=== PATIENT | male | born 1985 | race Caucasian/White ===

== ENCOUNTER → 2018-06-24 | Outpatient (CLI) | payer BC ==
[~2018-06-24] MED LIST: ACHD5005 PO; HOLD METFORMIN - RECEIVED CONTRAST 20 ML VIAL IV SCH; HYDR-1231 PO; HYDR1TAB PO; IOHEXOL 350 MG/ML 100 ML (OMNIPAQUE 350) VIAL IV ONE; NAPR-684 PO; SULF1TAB38 PO
--- NOTE | 2018-06-24 18:10 | Diagnostic Imaging Report ---
PROCEDURE: CT abdomen and pelvis with contrast. TECHNIQUE: Multiple contiguous axial images were obtained through the abdomen and pelvis after administration of intravenous contrast. Auto Exposure Controls were utilized during the CT exam to meet ALARA standards for radiation dose reduction. INDICATION: Right ureteral obstruction. Pain. FINDINGS: The liver is normal. The gallbladder is contracted. The bile ducts are not dilated. The spleen, pancreas, and adrenals are normal. The kidneys, ureters, and bladder are normal. The appendix is normal. No acute bowel abnormality is seen. There is no free intraperitoneal air or fluid. There is no bony abnormality. IMPRESSION: No abnormality is seen. Dictated by: Dictated on workstation # [id number]
== END ==
LOC: RAD 16:55
PROVIDERS: ATTEND Urology
DX: N13.5 Crossing vessel and stricture of ureter without hydronephrosis (principal)
CPT/HCPCS: 74177

== ENCOUNTER 2018-11-27 17:17 | Emergency (ER) | payer BC ==
[~2018-11-27] VITALS: Ht 175.3 cm; Wt 83.9 kg
[~2018-11-27 17:17] MED LIST changes: -HOLD METFORMIN - RECEIVED CONTRAST 20 ML VIAL IV SCH; -IOHEXOL 350 MG/ML 100 ML (OMNIPAQUE 350) VIAL IV ONE
[2018-11-27] MEDS ORDERED: RX-CLINDAMYCIN 150 MG (CLEOCIN) CAP PPK#4 PO STA (17:55)
[2018-11-27] MEDS ORDERED: RX-HYDROCODONE/APAP 5/325 MG #4 TAB PK PO PRN (18:00)
[2018-11-27] MEDS ORDERED: CLIN300C11 PO (18:07)
--- NOTE | 2018-11-27 18:07 | ED EENT ---
History of Present Illness General Chief Complaint: Dental Problems/Pain Stated Complaint: DENTAL PAIN Nursing Triage Note: PT VERBALIZED DENTAL PAIN FOR 1 WK Source: patient Exam Limitations: no limitations History of Present Illness Date Seen by Provider: Nov 27, 2018 Time Seen by Provider: 18:04 Initial Comments R with right lower dental pain and swelling for one week. Timing/Duration: abrupt Location: dental Prearrival Treatment: no prearrival treatment Associated Symptoms: denies symptoms Allergies and Home Medications Allergies Coded Allergies: morphine (Unverified Allergy, Mild, swollen arm and lizzette, 10/18/09) Home Medications Hydrocodone Bit/Acetaminophen 1 Tab Tablet, 1 TAB PO Q6H PRN for PAIN Prescribed by: NATHAN CRAWLEY on 10/11/131839 Naproxen 250 Mg Tablet, 1 EA PO TID PRN for PAIN FOR PAIN Prescribed by: NATHAN CRAWLEY on 10/11/131839 Patient Home Medication List Home Medication List Reviewed: Yes Review of Systems Review of Systems Constitutional: see HPI Eyes: No Symptoms Reported Ears: No Symptoms Reported Nose: no symptoms reported Mouth: see HPI Throat: no symptoms reported Respiratory: no symptoms reported Cardiovascular: no symptoms reported Musculoskeletal: no symptoms reported Past Nsjbkjf-Vcgxbm-Zucyyi Hx Patient Social History Recent Foreign Travel: No Contact w/Someone Who Travel: No Recent Infectious Disease Expo: No Immunizations Up To Date Tetanus Booster (TDap): Less than 5yrs Past Medical History Reproductive Disorders: No Sexually Transmitted Disease: No Family Medical History No Pertinent Family Hx Physical Exam Vital Signs Vital Signs - First Documented 11/27/18 17:36 Temp 98.2 Pulse 69 Resp 18 B/P (MAP) 127/82 (97) Pulse Ox 99 O2 Delivery Room Air Height, Weight, BMI Height: 5'9.00" Weight: 185lbs. oz. 83.608983bb; BMI Method:Stated General Appearance: WD/WN, no apparent distress Eyes: bilateral eye normal inspection, bilateral eye PERRL, bilateral eye EOMI Ears: bilateral ear auricle normal, bilateral ear canal normal, bilateral ear TM normal Mouth/Throat: other (multiple carious and fractured teeth. The right lower mandible is swollen but no fluctuance to suggest a drainable abscess) Neck: non-tender, full range of motion; No lymphadenopathy (R), No lymphadenopathy (L) Respiratory: no respiratory distress, no accessory muscle use Neurologic/Psychiatric: alert, normal mood/affect, oriented x 3 Skin: normal color, warm/dry Progress/Results/Core Measures Results/Orders My Orders Orders - NATHAN CRAWLEY APRN Rx-Clindamycin Capsule (Rx-Cleocin Capsu (11/27/18 17:55) Rx-Hydrocodone/Apap 5-325 Mg (Rx-Vicodin (11/27/18 18:00) Vital Signs/I&O 11/27/18 17:36 Temp 98.2 Pulse 69 Resp 18 B/P (MAP) 127/82 (97) Pulse Ox 99 O2 Delivery Room Air Blood Pressure Mean: 97 Departure Impression Primary Impression: Dental infection Disposition: HOME, SELF-CARE Condition: Improved Departure-Patient Inst. Decision time for Depature: 18:06 Referrals: KALIE RODNEY (Family) Primary Care Physician [facility] (PCP) Primary Care Physician Patient Instructions: Dental Pain Add. Discharge Instructions: 1. Call [facility] on Wednesday to make an appointment to be seen. Take antibiotics as directed. Return to ER for any concerns. This may take about 48 hours to notice improvement. All discharge instructions reviewed with patient and/or family. Voiced understanding. Scripts Clindamycin HCl (Clindamycin HCl) 300 Mg Capsule 300 MG PO TID, #21 CAP Prov: NATHAN CRAWLEY APRN 11/27/18 Images Mouth/Nose 1 - NATHAN CRAWLEY APRN Nov 27, 2018 18:07
[2018-11-27 18:22] VITALS: BP 127/82
== END 2018-11-27 18:35 | disposition home or self-care (01) ==
LOC: EDUNIT# 17:17 → ER 17:17
DX: K04.7 Periapical abscess without sinus (principal); Z88.5 Allergy status to narcotic agent
CPT/HCPCS: 99282

== ENCOUNTER 2018-12-03 16:16 | Emergency (ER) | payer BC ==
[~2018-12-03] VITALS: Ht 175.3 cm; Wt 83.9 kg
[~2018-12-03 16:16] MED LIST changes: +CLIN300C11 PO
[2018-12-03] MEDS ORDERED: CLIN300C11 PO (16:33)
--- NOTE | 2018-12-03 16:33 | ED EENT ---
History of Present Illness General Stated Complaint: DENTAL PAIN Source: patient Exam Limitations: no limitations History of Present Illness Date Seen by Provider: Dec 03, 2018 Time Seen by Provider: 16:30 Initial Comments Was seen here about a week ago for dental pain. Was given prescription for clindamycin 300 mg 3 times a day. There was right mandibular swelling. He took these for about 2 days, then accidentally washed his antibiotics in the washer. He's been without them for about 3 days. No pain today that has persisted swelling, needs a refill of antibiotics. Has appointment on 01/04/19 to tooth removed. Timing/Duration: abrupt Severity: moderate Location: dental Associated Symptoms: denies symptoms Allergies and Home Medications Allergies Coded Allergies: morphine (Unverified Allergy, Mild, swollen arm and lizzette, 10/18/09) Home Medications Clindamycin HCl 300 Mg Capsule, 300 MG PO TID Prescribed by: NATHAN CRAWLEY on 11/27/18 1807 Clindamycin HCl 300 Mg Capsule, 300 MG PO TID Prescribed by: NATHAN CRALWEY on 12/03/18 1633 Hydrocodone Bit/Acetaminophen 1 Tab Tablet, 1 TAB PO Q6H PRN for PAIN Prescribed by: NATHAN CRAWLEY on 10/11/13 1840 Naproxen 250 Mg Tablet, 1 EA PO TID PRN for PAIN FOR PAIN Prescribed by: NATHAN CRAWLEY on 10/11/13 1840 Patient Home Medication List Home Medication List Reviewed: Yes Review of Systems Review of Systems Constitutional: see HPI; No chills, No fever Eyes: No Symptoms Reported Ears: No Symptoms Reported Nose: no symptoms reported Mouth: no symptoms reported Throat: no symptoms reported Cardiovascular: no symptoms reported Musculoskeletal: no symptoms reported Skin: no symptoms reported Neurological: No Symptoms Reported Hematologic/Lymphatic: No Symptoms Reported Past Pjqnvya-Oyvpci-Ovwvab Hx Immunizations Up To Date Tetanus Booster (TDap): Less than 5yrs Past Medical History Reproductive Disorders: No Sexually Transmitted Disease: No Family Medical History No Pertinent Family Hx Physical Exam Vital Signs Vital Signs - First Documented 12/03/18 16:31 Temp 98.5 Pulse 84 Resp 18 B/P (MAP) 102/69 (80) Pulse Ox 100 Height, Weight, BMI Height: 5'9.00" Weight: 185lbs. oz. 83.939669gy; BMI Method:Stated General Appearance: WD/WN, no apparent distress Eyes: bilateral eye normal inspection, bilateral eye PERRL, bilateral eye EOMI Ears: bilateral ear auricle normal, bilateral ear canal normal, bilateral ear TM normal Nose: normal inspection Mouth/Throat: mandibular swelling (on the right side. On the buccal surface there is an area of fluctuance, he would like to have this drained.) Neck: No lymphadenopathy (R), No lymphadenopathy (L); other (No submandibular induration or cellulitis) Respiratory: normal breath sounds, no respiratory distress, no accessory muscle use Gastrointestinal: normal bowel sounds, non tender Neurologic/Psychiatric: alert, normal mood/affect, oriented x 3 Procedures/Interventions I&D : Progress Inferior alveolar nerve block done using 2 mL of 0.5% bupivacaine with epinephrine and 1% lidocaine with epinephrine 50-50 mixture. Area of maximum fluctuance was then incised with an 11 blade scalpel. A small amount of purulent material was expressed. Progress/Results/Core Measures Results/Orders My Orders Orders - NATHAN CRAWLEY APRN Lidocaine/Epi 2% 1:100,000 (Xylocaine/Ep (12/03/18 16:45) Vital Signs/I&O 12/03/18 16:31 Temp 98.5 Pulse 84 Resp 18 B/P (MAP) 102/69 (80) Pulse Ox 100 Departure Impression Primary Impression: Dental infection Disposition: 01 HOME, SELF-CARE Condition: Stable Departure-Patient Inst. Decision time for Depature: 16:33 Referrals: [facility] (PCP) Primary Care Physician KALIE RODNEY (Family) Primary Care Physician Patient Instructions: Dental Pain (DC) Scripts Clindamycin HCl (Clindamycin HCl) 300 Mg Capsule 300 MG PO TID, #21 CAP Prov: NATHAN CRAWLEY APRN 12/03/18 NATHAN CRAWLEY APRN Dec 03, 2018 16:33
[2018-12-03] MEDS ORDERED: LIDOCAINE/EPI 2% 1:100,00 (XYLOCAINE) 20 ML VIAL INJ ONE (16:45)
[2018-12-03 17:27] VITALS: BP 102/69
[2018-12-03] MEDS ORDERED: RX-HYDROCODONE/APAP 5/325 MG #4 TAB PK PO PRN (17:30)
== END 2018-12-03 17:27 | disposition home or self-care (01) ==
LOC: EDUNIT# 16:16 → ER 16:18
DX: K04.7 Periapical abscess without sinus (principal); Z88.5 Allergy status to narcotic agent
CPT/HCPCS: 99283

== ENCOUNTER 2019-09-15 09:43 | Emergency (ER) | payer BC ==
[~2019-09-15] VITALS: Ht 177.8 cm; Wt 77.1 kg
[2019-09-15] MEDS ORDERED: FAMOTIDINE 20 MG (PEPCID) TABLET PO STA (10:01)
[2019-09-15] MEDS ORDERED: FAMOTIDINE 20 MG (PEPCID) TABLET ONE (10:03)
[2019-09-15 10:09] LABS: BASOPHILS % (AUTO) 0 % (0-10); EOSINOPHILS # (AUTO) 0.1 10^3/uL (0.0-0.3); EOSINOPHILS % (AUTO) 1 % (0-10); HEMATOCRIT 47 % (40-54); HEMOGLOBIN 16.9 G/DL (13.3-17.7); LYMPHOCYTES # (AUTO) 2.7 X 10^3 (1.0-4.0); LYMPHOCYTES % (AUTO) 35 % (12-44); MEAN CORPUSCULAR HEMOGLOBIN 32 PG (25-34); MEAN CORPUSCULAR HGB CONC 36 G/DL (32-36); MEAN CORPUSCULAR VOLUME 89 FL (80-99); MEAN PLATELET VOLUME 9.9 FL (7.4-10.4); MONOCYTES # (AUTO) 0.7 X 10^3 (0.0-1.0); MONOCYTES % (AUTO) 9 % (0-12); NEUTROPHILS # (AUTO) 4.2 X 10^3 (1.8-7.8); NEUTROPHILS % (AUTO) 55 % (42-75); PLATELET COUNT 222 10^3/uL (130-400); RED CELL DISTRIBUTION WIDTH 12.2 % (10.0-14.5); WHITE BLOOD COUNT 7.7 10^3/uL (4.3-11.0)
--- NOTE | 2019-09-15 10:12 | ED Abdominal Pain ---
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 It went away and he felt fine last night. He ate some pizza rolls. This morning he woke up with some abdominal pain nausea especially in his epigastric and right upper quadrant region. He did not vomit. No diarrhea is a normal bowel movements. No abdominal surgeries or scopes. He said he's had a CT of his abdomen years ago that was normal. He has not taken any medications for his abdominal discomfort except for some Zofran which took away his nausea. Patient admits to anxiety with panic attacks. (JULIETTE LEONE) Timing/Duration: 4-6 Hours Severity/Quality: Moderate Location: Other Radiation: Chest Activities at Onset: None Associated Symptoms: Denies Symptoms (NATHAN CRAWLEY APRN) Allergies and Home Medications Allergies Coded Allergies: morphine (Unverified Allergy, Mild, swollen arm and lizzette, 10/18/09) Home Medications Clindamycin HCl 300 Mg Capsule, 300 MG PO TID Prescribed by: NATHAN CRAWLEY on 11/27/18 1807 Clindamycin HCl 300 Mg Capsule, 300 MG PO TID Prescribed by: NATHAN CRAWLEY on 12/03/18 1633 Hydrocodone Bit/Acetaminophen 1 Tab Tablet, 1 TAB PO Q6H PRN for PAIN Prescribed by: NATHAN CRAWLEY on 10/11/13 184 Ibuprofen 800 Mg Tablet, 800 MG PO Q8H PRN for PAIN Prescribed by: NATHAN CRAWLEY on 09/15/19 1241 Naproxen 250 Mg Tablet, 1 EA PO TID PRN for PAIN FOR PAIN Prescribed by: NATHAN CRAWLEY on 10/11/13 184 Patient Home Medication List Home Medication List Reviewed: Yes (NATHAN CRAWLEY APRN) Review of Systems Review of Systems Constitutional: see HPI; No chills, No fever EENTM: No Symptoms Reported Respiratory: See HPI Cardiovascular: See HPI, Palpitations Gastrointestinal: No Symptoms Reported Genitourinary: No Symptoms Reported Musculoskeletal: no symptoms reported Skin: no symptoms reported Psychiatric/Neurological: No Symptoms Reported Endocrine: No Symptoms Reported Hematologic/Lymphatic: No Symptoms Reported (NATHAN CRAWLEY APRN) Past Zusbngq-Rjwzie-Ktagtz Hx Patient Social History Recent Hopitalizations: No (JULIETTE LEONE) Immunizations Up To Date Tetanus Booster (TDap): Less than 5yrs (JULIETTE LEONE) Past Medical History Surgeries: Yes Respiratory: No Cardiac: No Neurological: No Reproductive Disorders: No Sexually Transmitted Disease: No Gastrointestinal: No Musculoskeletal: No Endocrine: No Cancer: No Psychosocial: No Integumentary: No Blood Disorders: No (JULIETTE LEONE) Family Medical History No Pertinent Family Hx (JULIETTE LEONE) Physical Exam Vital Signs Vital Signs - First Documented 09/15/19 09/15/19 09:50 12:48 Temp 36.7 Pulse 69 Resp 16 B/P (MAP) 130/83 (99) Pulse Ox 98 O2 Delivery Room Air (NATHAN CRAWLEY APRN) Vital Signs Capillary Refill : (JULIETTE LEONE) Height/Weight/BMI Height: 5'9.00" Weight: 185lbs. oz. 83.734662xt; BMI Method:Stated (JULIETTE LEONE) General Appearance: WD/WN, no apparent distress HEENT: PERRL/EOMI, normal ENT inspection Respiratory: no respiratory distress, no accessory muscle use Cardiovascular: regular rate, rhythm, no murmur Gastrointestinal: normal bowel sounds, non tender, soft Extremities: normal range of motion, non-tender Neurologic/Psychiatric: alert, normal mood/affect, oriented x 3 Skin: normal color, warm/dry (NATHAN CRAWLEY APRN) Progress/Results/Core Measures Results/Orders Lab Results Laboratory Tests Test 09/15/19 10:02 09/15/19 10:38 09/15/19 10:42 09/15/19 12:00 Range/Units White Blood Count 7.7 4.3-11.0 10^3/uL Red Blood Count 5.27 4.35-5.85 10^6/uL Hemoglobin 16.9 13.3-17.7 G/DL Hematocrit 47 40-54 % Mean Corpuscular Volume 89 80-99 FL Mean Corpuscular Hemoglobin 32 25-34 PG Mean Corpuscular Hemoglobin Concent 36 32-36 G/DL Red Cell Distribution Width 12.2 10.0-14.5 % Platelet Count 222 130-400 10^3/uL Mean Platelet Volume 9.9 7.4-10.4 FL Neutrophils (%) (Auto) 55 42-75 % Lymphocytes (%) (Auto) 35 12-44 % Monocytes (%) (Auto) 9 0-12 % Eosinophils (%) (Auto) 1 0-10 % Basophils (%) (Auto) 0 0-10 % Neutrophils # (Auto) 4.2 1.8-7.8 X 10^3 Lymphocytes # (Auto) 2.7 1.0-4.0 X 10^3 Monocytes # (Auto) 0.7 0.0-1.0 X 10^3 Eosinophils # (Auto) 0.1 0.0-0.3 10^3/uL Basophils # (Auto) 0.0 0.0-0.1 10^3/uL Sodium Level 135 135-145 MMOL/L Potassium Level 4.1 3.6-5.0 MMOL/L Chloride Level 102 98-107 MMOL/L Carbon Dioxide Level 24 21-32 MMOL/L Anion Gap 9 5-14 MMOL/L Blood Urea Nitrogen 11 7-18 MG/DL Creatinine 0.94 0.60-1.30 MG/DL Estimat Glomerular Filtration Rate > 60 BUN/Creatinine Ratio 12 Glucose Level 98 70-105 MG/DL Calcium Level 9.4 8.5-10.1 MG/DL Corrected Calcium 9.0 8.5-10.1 MG/DL Total Bilirubin 1.3 H 0.1-1.0 MG/DL Aspartate Amino Transf (AST/SGOT) 20 5-34 U/L Alanine Aminotransferase (ALT/SGPT) 18 0-55 U/L Alkaline Phosphatase 57 40-136 U/L Troponin I 0.030 H 0.037 H <0.028 NG/ML Total Protein 7.9 6.4-8.2 GM/DL Albumin 4.5 3.2-4.5 GM/DL Lipase 14 8-78 U/L Urine Color YELLOW Urine Clarity CLEAR Urine pH 6.0 5-9 Urine Specific [employer] <=1.005 1.016-1.022 Urine Protein NEGATIVE NEGATIVE Urine Glucose (UA) NEGATIVE NEGATIVE Urine Ketones NEGATIVE NEGATIVE Urine Nitrite NEGATIVE NEGATIVE Urine Bilirubin NEGATIVE NEGATIVE Urine Urobilinogen 0.2 < = 1.0 MG/DL Urine Leukocyte Esterase NEGATIVE NEGATIVE Urine RBC (Auto) NEGATIVE NEGATIVE Urine RBC NONE /HPF Urine WBC NONE /HPF Urine Crystals NONE /LPF Urine Bacteria NEGATIVE /HPF Urine Casts NONE /LPF Urine Mucus NEGATIVE /LPF Urine Culture Indicated NO Urine Opiates Screen NEGATIVE NEGATIVE Urine Oxycodone Screen NEGATIVE NEGATIVE Urine Methadone Screen NEGATIVE NEGATIVE Urine Propoxyphene Screen NEGATIVE NEGATIVE Urine Barbiturates Screen NEGATIVE NEGATIVE Ur Tricyclic Antidepressants Screen NEGATIVE NEGATIVE Urine Phencyclidine Screen NEGATIVE NEGATIVE Urine Amphetamines Screen NEGATIVE NEGATIVE Urine Methamphetamines Screen NEGATIVE NEGATIVE Urine Benzodiazepines Screen NEGATIVE NEGATIVE Urine Cocaine Screen NEGATIVE NEGATIVE Urine Cannabinoids Screen POSITIVE H NEGATIVE C-Reactive Protein High Sensitivity 0.13 0.00-0.50 MG/DL (NATHAN CRAWLEY APRN) My Orders Orders - NATHAN CRAWLEY APRN Troponin I (09/15/19 12:00) Hs C Reactive Protein (09/15/19 10:42) Drug Screen Stat (Urine) (09/15/19 11:03) (NATHAN CRAWLEY APRN) Medications Given in ED Current Medications Medications Dose Ordered Sig/Latha Route Start Time Stop Time Status Last Admin Dose Admin Al Hydrox/Mg Hydrox/Simethicone 30 ml ONCE ONCE PO 09/15/19 10:15 09/15/19 10:16 DC 09/15/19 10:14 30 ML Famotidine 20 mg STK-MED ONCE .ROUTE 09/15/19 10:03 09/15/19 10:05 DC 09/15/19 10:14 20 MG Lidocaine HCl 15 ml ONCE ONCE PO 09/15/19 10:15 09/15/19 10:16 DC 09/15/19 10:14 15 ML (NATHAN CRAWLEY APRN) Vital Signs/I&O 09/15/19 09/15/19 09:50 12:48 Temp 36.7 36.7 Pulse 69 69 Resp 16 16 B/P (MAP) 130/83 (99) 130/83 (99) Pulse Ox 98 98 O2 Delivery Room Air (NATHAN CRAWLEY APRN) Progress Progress Note : Time: 10:20 Progress Note Patient had a COVID test performed yesterday so we will try and get the results. He has a history of anxiety and panic attacks which could explain his palpitations. We'll get EKG, chest x-ray labs. His abdomen is tender in the epigastric and right upper quadrant has a mild Gonzales sign. We'll look for evidence of ductal blockage, elevated white count or other worrisome symptoms and if so we'll obtain a right upper quadrant ultrasound. If not we can set him up for right upper quadrant ultrasound outpatient. Aseptic vital signs. Patient does not endorse having any subjective fevers but he says he did have chills that coincided with the times when his heart was pounding in his chest and could also be explained by a panic attack. (JULIETTE LEONE) Initial ECG Impression Date: Sep 15, 2019 Initial ECG Impression Time: 10:01 Initial ECG Rate: 57 Initial ECG Rhythm: Normal Sinus Initial ECG Intervals: Normal Initial ECG Impression: Normal Comment Normal sinus rhythm without clinically relevant ST changes. (JULIETTE LEONE) Diagnostic Imaging Diagonstic Imaging: Xray Plain Films/CT/US/NM/MRI: chest (1v) Reviewed: Reviewed by Me (JULIETTE LEONE) Departure Communication (Admissions) 1239-2 hour troponin measurable but still technically negative. Spoke with Dr. Coronado and reviewed the EKG with him as well as the 2 troponins. recommends NSAIDs, discharge home. Follow-up outpatient. Patient is chest pain-free at this time. States that he never really had chest pain, only a pounding sensation in his chest. The measurable troponin would be an expected finding with viral myocarditis if he tests positive for Covid 19. (He was swabbed at [facility] yesterday) He is employed at [employer] where a large number of individuals have tested positive for covid19. (NATHAN CRAWLEY APRN) Impression Primary Impression: Pericarditis Qualified Codes: I30.9 - Acute pericarditis, unspecified Disposition: HOME, SELF-CARE Condition: Stable Departure-Patient Inst. Decision time for Depature: 12:40 (NATHAN CRAWLEY APRN) Referrals: [facility] (PCP) Primary Care Physician KALIE RODNEY (Family) Primary Care Physician EUGENIA CORONADO MD Patient Instructions: Pericarditis, Adult (DC) Add. Discharge Instructions: 1. Ibuprofen as directed. Return to ER for any concerns. Follow-up with Dr. Abdalla. Call Wednesday to make an appointment to be seen. Return over the weekend for any worsening symptoms or other concerns Scripts Ibuprofen (Ibuprofen) 800 Mg Tablet 800 MG PO Q8H PRN for PAIN, #30 TAB 0 Refills Prov: NATHAN CRAWLEY APRN 09/15/19 JULIETTE LEONE Sep 15, 2019 10:12 NATHAN CRAWLEY APRN Sep 15, 2019 12:41
[2019-09-15] MEDS ORDERED: LIDOCAINE 2% VISCOUS 15 ML UDC PO ONE (10:15)
[2019-09-15] MEDS ORDERED: ANTACID SUSP 30 ML UDC (MYLANTA) PO ONE (10:15)
[2019-09-15 10:20] LABS: ALBUMIN 4.5 GM/DL (3.2-4.5); CHLORIDE 102 MMOL/L (98-107); POTASSIUM 4.1 MMOL/L (3.6-5.0); SODIUM 135 MMOL/L (135-145)
[2019-09-15 10:21] LABS: CALCIUM 9.4 MG/DL (8.5-10.1)
[2019-09-15 10:22] LABS: GLUCOSE 98 MG/DL (70-105); TOTAL PROTEIN 7.9 GM/DL (6.4-8.2)
[2019-09-15 10:24] LABS: BILIRUBIN,TOTAL 1.3 MG/DL (0.1-1.0); CARBON DIOXIDE 24 MMOL/L (21-32)
[2019-09-15 10:26] LABS: ALKALINE PHOSPHATASE 57 U/L (40-136); CREATININE SERUM 0.94 MG/DL (0.60-1.30); GFR ESTIMATED > 60
[2019-09-15 10:27] LABS: BUN/CREATININE RATIO 12
[2019-09-15 10:29] LABS: ALANINE AMINOTRANSFERASE 18 U/L (0-55); LIPASE 14 U/L (8-78)
--- NOTE | 2019-09-15 10:47 | Diagnostic Imaging Report ---
PATIENT HISTORY: Cough, body aches. TECHNIQUE: Single frontal view of the chest. COMPARISON: None FINDINGS: The lung volumes are normal. No focal consolidation is seen. No large pleural effusion or pneumothorax is seen. The cardiomediastinal silhouette is normal in size and contour. No acute osseous abnormality is seen. IMPRESSION: No acute pulmonary abnormality seen. Dictated by: Dictated on workstation # [id number]
[2019-09-15 10:50] LABS: BILIRUBIN,URINE NEGATIVE (NEGATIVE); CLARITY,URINE CLEAR; COLOR,URINE YELLOW; GLUCOSE, URINE (UA) NEGATIVE (NEGATIVE); KETONES,URINE NEGATIVE (NEGATIVE); LEUKOCYTE ESTERASE ,URINE NEGATIVE (NEGATIVE); NITRITE,URINE NEGATIVE (NEGATIVE); PROTEIN,URINE NEGATIVE (NEGATIVE)
[2019-09-15 10:58] LABS: BACTERIA,URINE NEGATIVE /HPF
--- NOTE | 2019-09-15 11:40 | NUR ---
PT CONTACTED THIS RN REGARDING PT UPDATE. UPDATE GIVEN TO , KATHARINE.
[2019-09-15 11:41] LABS: AMPHETAMINE SCREEN, URINE NEGATIVE (NEGATIVE); BARBITURATE SCREEN URINE NEGATIVE (NEGATIVE); BENZODIAZEPINES SCREEN URINE NEGATIVE (NEGATIVE); CANNABINOID SCREEN, URINE POSITIVE (NEGATIVE); COCAINE SCREEN URINE NEGATIVE (NEGATIVE); METHADONE STAT NEGATIVE (NEGATIVE); METHAMPHETAMINE SCREEN URINE S NEGATIVE (NEGATIVE); OPIATE SCREEN URINE NEGATIVE (NEGATIVE); OXYCODONE STAT NEGATIVE (NEGATIVE); PROPOXYPHENE STAT NEGATIVE (NEGATIVE); TRICYCLIC ANTIDEPRESSANTS SCRE NEGATIVE (NEGATIVE)
[2019-09-15] MEDS ORDERED: IBUP-1780 PO (12:41)
[2019-09-15 12:48] VITALS: BP 130/83
== END 2019-09-15 12:50 | disposition home or self-care (01) ==
LOC: EDUNIT# 09:43 → ER 09:45
DX: I31.9 Disease of pericardium, unspecified (principal)
CPT/HCPCS: 36415; 71045; 80053; 80306; 81000; 83690; 84484; 85025; 86141; 93005; 93041

== ENCOUNTER 2019-09-25 17:46 | Emergency (ER) | payer SELFPAY ==
[~2019-09-25] VITALS: Ht 175.2 cm; Wt 81.6 kg
[~2019-09-25 17:46] MED LIST changes: +IBUP-1780 PO
--- NOTE | 2019-09-25 18:05 | Diagnostic Imaging Report ---
INDICATION: Shortness of air COMPARISON: CT abdomen dated 06/24/[address] chest dated 09/15/2019 FINDINGS: Single frontal view of the chest demonstrates normal heart size and pulmonary vascularity. The lungs are well aerated and clear. No large pleural effusion or pneumothorax is seen. The visualized osseous structures show no acute abnormalities. IMPRESSION: 1. No acute cardiopulmonary process. Dictated by: Dictated on workstation # [id number]
[2019-09-25 18:30] LABS: BASOPHILS % (AUTO) 0 % (0-10); EOSINOPHILS # (AUTO) 0.2 10^3/uL (0.0-0.3); EOSINOPHILS % (AUTO) 2 % (0-10); HEMATOCRIT 43 % (40-54); HEMOGLOBIN 15.3 G/DL (13.3-17.7); LYMPHOCYTES # (AUTO) 3.5 X 10^3 (1.0-4.0); LYMPHOCYTES % (AUTO) 40 % (12-44); MEAN CORPUSCULAR HEMOGLOBIN 32 PG (25-34); MEAN CORPUSCULAR HGB CONC 36 G/DL (32-36); MEAN CORPUSCULAR VOLUME 89 FL (80-99); MEAN PLATELET VOLUME 10.7 FL (7.4-10.4); MONOCYTES # (AUTO) 0.7 X 10^3 (0.0-1.0); MONOCYTES % (AUTO) 8 % (0-12); NEUTROPHILS # (AUTO) 4.4 X 10^3 (1.8-7.8); NEUTROPHILS % (AUTO) 50 % (42-75); PLATELET COUNT 190 10^3/uL (130-400); WHITE BLOOD COUNT 8.9 10^3/uL (4.3-11.0)
--- NOTE | 2019-09-25 18:31 | ED Cough/URI ---
General Stated Complaint: CP/BACK PAIN Source: patient Exam Limitations: no limitations History of Present Illness Date Seen by Provider: Sep 25, 2019 Time Seen by Provider: 17:53 Initial Comments 34-year-old male who presents to the emergency room with complaints of chest pain, upper back pain, feeling hot and cold. Patient is an employee of [employer] where they have had several cases of COVID. He reports that he has been swapped twice for COVID in the last 2 weeks in both test have been negative. He reports that he is not improving and once evaluated again. He is in no respiratory distress on arrival to the emergency room. Vital signs are stable on arrival to the emergency room. He was started on doxycycline 100 milligrams twice a day at his second screening for COVID. Allergies and Home Medications Allergies Coded Allergies: morphine (Unverified Allergy, Mild, swollen arm and lizzette, 10/18/09) Home Medications Clindamycin HCl 300 Mg Capsule, 300 MG PO TID Prescribed by: NATHAN CRAWLEY on 11/27/18 1807 Clindamycin HCl 300 Mg Capsule, 300 MG PO TID Prescribed by: NATHAN CRAWLEY on 12/03/18 1633 Hydrocodone Bit/Acetaminophen 1 Tab Tablet, 1 TAB PO Q6H PRN for PAIN Prescribed by: NATHAN CRAWLEY on 10/11/13 1840 Ibuprofen 800 Mg Tablet, 800 MG PO Q8H PRN for PAIN Prescribed by: ANTHAN CRAWLEY on 09/15/19 1241 Naproxen 250 Mg Tablet, 1 EA PO TID PRN for PAIN FOR PAIN Prescribed by: NATHAN CRAWLEY on 10/11/13 1840 Past Jltoiju-[id number]-Mhdlvf Hx Patient Social History Recent Hopitalizations: No Immunizations Up To Date Tetanus Booster (TDap): Less than 5yrs Seasonal Allergies Seasonal Allergies: No Past Medical History Surgeries: Yes Orthopedic Respiratory: No Cardiac: No Neurological: No Reproductive Disorders: No Sexually Transmitted Disease: No Genitourinary: No Gastrointestinal: No Musculoskeletal: No Endocrine: No HEENT: No Cancer: No Psychosocial: Yes Anxiety, Depression Integumentary: No Blood Disorders: No Family Medical History No Pertinent Family Hx Physical Exam Vital Signs - First Documented 09/25/19 09/25/19 17:46 18:45 Temp 36.7 Pulse 64 Resp 18 B/P (MAP) 134/80 (98) Pulse Ox 97 O2 Delivery Room Air Capillary Refill : Height: 5'9.00" Weight: 185lbs. oz. 83.246764eq; 24.00 BMI Method:Stated Progress/Results/Core Measures Suspected Sepsis SIRS Temperature: Pulse: Respiratory Rate: Laboratory Tests 09/25/19 18:20: White Blood Count 8.9 Blood Pressure / Mean: Laboratory Tests 09/25/19 18:20: Creatinine 0.86, Platelet Count 190, Total Bilirubin 0.4 Results/Orders Lab Results Laboratory Tests Test 09/25/19 18:20 Range/Units White Blood Count 8.9 4.3-11.0 10^3/uL Red Blood Count 4.77 4.35-5.85 10^6/uL Hemoglobin 15.3 13.3-17.7 G/DL Hematocrit 43 40-54 % Mean Corpuscular Volume 89 80-99 FL Mean Corpuscular Hemoglobin 32 25-34 PG Mean Corpuscular Hemoglobin Concent 36 32-36 G/DL Red Cell Distribution Width 12.0 10.0-14.5 % Platelet Count 190 130-400 10^3/uL Mean Platelet Volume 10.7 H 7.4-10.4 FL Neutrophils (%) (Auto) 50 42-75 % Lymphocytes (%) (Auto) 40 12-44 % Monocytes (%) (Auto) 8 0-12 % Eosinophils (%) (Auto) 2 0-10 % Basophils (%) (Auto) 0 0-10 % Neutrophils # (Auto) 4.4 1.8-7.8 X 10^3 Lymphocytes # (Auto) 3.5 1.0-4.0 X 10^3 Monocytes # (Auto) 0.7 0.0-1.0 X 10^3 Eosinophils # (Auto) 0.2 0.0-0.3 10^3/uL Basophils # (Auto) 0.0 0.0-0.1 10^3/uL D-Dimer < 0.27 0.00-0.49 UG/ML Sodium Level 138 135-145 MMOL/L Potassium Level 3.7 3.6-5.0 MMOL/L Chloride Level 103 98-107 MMOL/L Carbon Dioxide Level 24 21-32 MMOL/L Anion Gap 11 5-14 MMOL/L Blood Urea Nitrogen 11 7-18 MG/DL Creatinine 0.86 0.60-1.30 MG/DL Estimat Glomerular Filtration Rate > 60 BUN/Creatinine Ratio 13 Glucose Level 93 70-105 MG/DL Calcium Level 8.7 8.5-10.1 MG/DL Corrected Calcium 8.7 8.5-10.1 MG/DL Total Bilirubin 0.4 0.1-1.0 MG/DL Aspartate Amino Transf (AST/SGOT) 15 5-34 U/L Alanine Aminotransferase (ALT/SGPT) 13 0-55 U/L Alkaline Phosphatase 50 40-136 U/L C-Reactive Protein High Sensitivity 0.06 0.00-0.50 MG/DL Total Protein 6.8 6.4-8.2 GM/DL Albumin 4.0 3.2-4.5 GM/DL Procalcitonin 0.02 <0.10 NG/ML My Orders Orders - SIDDHARTHA THORNE Cbc With Automated Diff (09/25/19 17:51) Comprehensive Metabolic Panel (09/25/19 17:51) Fibrin Degradation Products (09/25/19 17:51) Procalcitonin (Pct) (09/25/19 17:51) Ekg Tracing (09/25/19 17:51) Chest 1 View, Ap/Pa Only (09/25/19 17:51) Coronavirus Sars-Cov-2 So 2018 (09/25/19 17:51) Covid-19 Suspect Update (09/25/19 17:51) Hs C Reactive Protein (09/25/19 18:51) Vital Signs/I&O 09/25/19 09/25/19 09/25/19 17:46 18:45 18:58 Temp 36.7 Pulse 64 Resp 18 B/P (MAP) 134/80 (98) 136/80 Pulse Ox 97 O2 Delivery Room Air Room Air Capillary Refill : Departure Impression Primary Impression: Exposure to SARS-associated coronavirus Disposition: HOME, SELF-CARE Condition: Stable/Unchanged Departure-Patient Inst. Decision time for Depature: 19:36 Referrals: [facility] (PCP) Primary Care Physician KALIE RODNEY (Family) Primary Care Physician Patient Instructions: COVID19 Add. Discharge Instructions: Continue isolation until we get your results. Follow-up with your primary care p sam within 1 week for recheck. Continue your antibiotics as prescribed. Return back to the emergency room for worsening symptoms or concerns as needed. SIDDHARTHA THORNE Sep 25, 2019 18:31
[2019-09-25 18:49] LABS: CHLORIDE 103 MMOL/L (98-107); POTASSIUM 3.7 MMOL/L (3.6-5.0); SODIUM 138 MMOL/L (135-145)
[2019-09-25 18:50] LABS: CALCIUM 8.7 MG/DL (8.5-10.1)
[2019-09-25 18:51] LABS: GLUCOSE 93 MG/DL (70-105); TOTAL PROTEIN 6.8 GM/DL (6.4-8.2)
[2019-09-25 18:52] LABS: CARBON DIOXIDE 24 MMOL/L (21-32)
[2019-09-25 18:53] LABS: BILIRUBIN,TOTAL 0.4 MG/DL (0.1-1.0)
[2019-09-25 18:55] LABS: ALKALINE PHOSPHATASE 50 U/L (40-136); CREATININE SERUM 0.86 MG/DL (0.60-1.30); GFR ESTIMATED > 60
[2019-09-25 18:56] LABS: BUN/CREATININE RATIO 13
[2019-09-25 18:58] LABS: ALANINE AMINOTRANSFERASE 13 U/L (0-55)
--- NOTE | 2019-09-25 19:19 | NUR ---
Pt swabbed for COVID-19 at this time.
[2019-09-25 19:50] VITALS: BP 140/80
--- OUTSIDE RECORDS SUMMARY | 2019-09-25 20:43 | XMS REPORT ---
Author Author [facility] Address [address] [address] Care Team Providers Care Asbestos Cement Sheet Supervisor Name Role Phone NO, LOCAL PHYSICIAN Unavailable Unavailable NO, LOCAL PHYSICIAN Unavailable Unavailable ANITA STYLES MD Unavailable Unavailable [facility] GARRY OLEARY Unavailable KALIE RODNEY Unavailable Unavailable NATHAN CRAWLEY APRN Unavailable Unavailable GOPAL JOSHI, VINH Segura Unavailable Unavailable JULIETTE LEONE Unavailable Unavailable Unavailable Unavailable LEONOR CHEN Unavailable Unavailable Unavailable Unavailable Unavailable Unavailable Allergies No Information Medications Medication Ingredient Drug Dose Dates Status Sig Sig Care Class(es) (Normalized) (Original) Provid er no Acetaminoph no 11-14-19 Complete no Acetaminophe (no information en/Hydrocod information 13 d information n/ Hydrocodon phone) (2 one Bitart [employer] sources.) (Lortab 5 (Lortab 5 Mg Mg Tablet) Tablet) 1 1 Each Each Tablet, Tablet, 1 1 Each Oral Each Oral Every 4 Hours as needed Discontinued no Acetaminoph no 03-29-19 Complete no Acetaminophe Ryan information en/Hydrocod information 12 - d information n/ Hydrocodon A (2 one Bitart 04-01-19 e [employer] sources.) (Vicodin 12 (Vicodin (no 5-500 5-500 phone) Tablet) 1 Tablet) 1 Each Each Tablet, Tablet, 1 - 1 - 2 Each 2 Each Oral Oral Q4hr Prn 03/29/11 Discontinued clindamycin Clindamycin Lincosamide 300 mg 11-28-19 Complete take 1 Clindamycin Peter 300 mg oral Antibacteri 19 d capsule by Hcl 300 Rodolfo g [employer] capsule (3 al mouth three Capsule 300 [employer] sources.) times daily Mg ORAL (no Three Times phone) A Day 21 Cap 12/03/18 ondansetron Ondansetron Serotonin-3 4 mg 06-01-19 Suspende take 1 Zofran ODT 4 no 4 mg oral Receptor 19 d tablet by MG Orally 3 na me tablet (1 Antagonist mouth three times a day source.) times daily 1 tablet on as needed the tongue for nausea and allow to dissolve as needed for nausea 8h May, 5 days Not-Taking oseltamivir Oseltamivir Neuraminida 75 mg 06-01-19 Suspende take 1 Oseltamivir no 75 mg oral Translation se 19 d capsule by Phosphate 75 name capsule (1 s: [ Inhibitor mouth twice MG Orally source.) Oseltamivir daily Twice a day Phosphate 1 capsule 75 MG] 12h May, 5 day(s) Not-Taking no Trimethopri no 11-14-19 Complete no Trimethoprim Gretch information m/Sulfameth information 13 - d information /S ulfamethox en L (4 oxazole 10-12-19 azole [place] sources.) (Bactrim 14 (Bactrim Ds) (no Ds) 1 Ea 1 Ea Tablet, phone) Tablet, 1 1 Ea Oral Ea Oral Twice A Day 11/13/12 Discontinued 02-23-2011 Completed no Trimetho Vinh - inform prim/Sul D 03-29-2011 ation famethox Gopal azole (no (Bactrim phone) Ds) 1 Ea Tablet, 1 Ea Oral Twice A Day 02/23/11 Disconti nued Problems Active Problems Problem Normalized Date Last Normalized Normalized Provider Fa cility Classification Problem(s) Recorded Problem Problem Sta tus Duration Other lower Cough Episodic Active GARRY HUNZIKER Commun ity respiratory Translations: [facility] disease (1 [ - Cough R05] of [place] source.) [place] ([address]) Other diseases Crossing Episodic Active ANITA STEPHANI , Not Available of kidney and vessel and MD (91663) ureters (3 stricture of sources.) ureter without hydronephrosis Residual Family history Episodic Active GARRY HUNZIKER Co mmunity codes; of malignant [address] [facility] Center unclassified neoplasm of of [place] (1 source.) digestive [place] ([address]98) organs Translations: [ - Family history of colon cancer Z80.0] Fever of Fever, Episodic Active GARRY HUNZIKER Communit y unknown origin unspecified [address] [facility] (1 source.) Translations: of [facility] [ - Fever and [place] ([address]) chills R50.9] Influenza (2 Influenza due Episodic Active GARRY LISAKER Community sources.) to other [address] [place] [address] identified of [facility] influenza [place] ([address]) virus with other respiratory manifestations Translations: [ - Influenza A J10.1] Nausea and Nausea Episodic Active GARRY HUNKER Communi ty vomiting (1 Translations: [address] [place] [address] source.) [ - Nausea of [facility] R11.0] [place] ([address]) Other Pain in limb Episodic Active NATHAN CRAWLEY Not Tiffanie ilable connective (45453) tissue disease (1 source.) Other Pain in right Episodic Active GARRY ANIRUDH Com munity non-traumatic ankle and [address] [place] [address] joint joints of [facility] disorders (1 right foot [place] ([address]) source.) Translations: [ - Pain in lateral portion of right ankle M25.571] Other skin Subungual Episodic Active [facility] [place] V ia disorders (2 [facility] CENTER/K Aicha sources.) [address] [place] [address] ([address]) Past or Other Problems Problem Normalized Date Last Normalized Normalized Provider Fa cility Classification Problem(s) Recorded Problem Problem Sta tus Duration Allergic Allergy status Episodic Completed NATHAN CRAWLEY VC V ia reactions (4 to narcotic Aicha sources.) agent status [facility] (51985) External cause Caught no information no information NATHAN HERR Not Available codes: Other accidentally (71253) specified and in or between classifiable objects (1 source.) Disorders of Dental caries, Episodic Completed NATHAN CRALWEY VC Via teeth and jaw unspecified Aicha (11 sources.) Translations: Hospital - [ - [place] K02.9, - Tooth (18442) abscess K04.7, OTHER SPECIFIED DISORDERS OF TEETH AND S, PERIAPICAL ABSCESS WITHOUT SINUS] Procedures The data below is from unstructured sourcesNo known history of procedures.No procedure information available.No procedure i nformation available.No procedure information available.No procedure information available. No Known procedures No Known procedures Immunizations Normalized Immunization Date Notes Care Provider Facili ty Immunization Vaccination no information [facility] Via Translations: [ [address] [place] [address] vaccine] ([address]) Results Test Name Value Interpretation Reference Range Date Time Fa cility (Normalized) (Normalized) (Medline Reference) laboratory on 2019-05-08 Albumin 4.6 g/dL (N) 3.4 - 5.4 g/dL [facility] [Mass/Vol] [facility] (07841) Albumin/Globulin 1.8 {ratio} (N) 1 - 2.5 {ratio} Comm [facility] [Mass ratio] [facility] (81404) ALP [Catalytic 59 U/L (N) 44 - 147 U/L [facility] activity/Vol] [facility] (35642) ALT [Catalytic 14 U/L (N) 4 - 40 U/L Community ealth activity/Vol] [facility] () AST [Catalytic 17 U/L (N) 10 - 34 U/L [facility] activity/Vol] [facility] (74775) Basophils (Bld) 0.04 10*3/uL (N) 0 - 0.3 10*3/uL [facility] [#/Vol] [facility] (53087) Basophils/100 0.5 % (N) 0.5 - 1 % Community alth WBC (Bld) [facility] (90011) Bilirubin 0.4 mg/dL (N) 0.1 - 1.2 mg/dL [facility] [Mass/Vol] [facility] (19337) Calcium 9.0 mg/dL (N) 8.5 - 10.2 mg/dL [facility] [Mass/Vol] [facility] (64110) Chloride 104 mmol/L (N) 95 - 106 mmol/L [facility] [Moles/Vol] [facility] (88331) Cholesterol 191 mg/dL (N) 180 - 200 mg/dL [facility] [Mass/Vol] [facility] (66554) Cholesterol in 48 mg/dL (N) [facility] [Mass/Vol] [facility] (42835) Cholesterol in 123 mg/dL (H) 0 - 100 mg/dL [facility] LDL [Mass/Vol] [facility] (83842) Cholesterol non 143 mg/dL (H) [facility] th HDL [Mass/Vol] [facility] (21945) Cholesterol.tota 4.0 {ratio} (N) [facility] lt l/Cholesterol in [facility] HDL [Mass ratio] [facility] (79851) CO2 [Moles/Vol] 27 mmol/L (N) 23 - 29 mmol/L [facility] (42268) Creatinine 0.79 mg/dL (N) [facility] h [Mass/Vol] [facility] (39728) Eosinophils 0.158 10*3/uL (N) 0.05 - 0.5 [facility] alth (Bld) [#/Vol] 10*3/uL [facility] (47255) Eosinophils/100 2.0 % (N) 1 - 4 % [facility] WBC (Bld) [facility] (97422) Erythrocyte 12.1 % (N) 11.6 - 14.6 % [facility] ealth distribution [facility] width (RBC) [facility] [Ratio] (69823) Free T4 1.2 ng/dL (N) 0.9 - 2.2 ng/dL [facility] [Mass/Vol] [facility] (96852) GFR/1.73 sq M 138 (N) 90 - 120 [facility] predicted among mL/min/{1.73_m2} mL/min/{1.73_m2} Center o f [facility] blacks MDRD [facility] (S/P/Bld) [Vol (53571) rate/Area] GFR/1.73 sq 119 (N) 90 - 120 [facility] th M.predicted MDRD mL/min/{1.73_m2} mL/min/{1.73_m2} [facility] (S/P/Bld) [Vol [facility] rate/Area] (29229) Globulin (S) 2.5 g/dL (N) 2 - 3.5 g/dL [facility] ealth [Mass/Vol] [facility] (79684) Glucose 98 mg/dL (N) 60 - 125 mg/dL [facility] [Mass/Vol] [facility] (55980) Hematocrit (Bld) 46.2 % (N) 36.1 - 50.3 % [facility] ity Health [Volume [facility] fraction] [facility] (65141) Hemoglobin (Bld) 16.0 g/dL (N) 12.1 - 17.2 g/dL [facility] Health [Mass/Vol] [facility] (54966) Lymphocytes 2.315 10*3/uL (N) 0.9 - 2.9 Community He alth (Bld) [#/Vol] 10*3/uL [facility] (23447) Lymphocytes/100 29.3 % (N) 20 - 40 % [facility] WBC (Bld) [facility] (10109) MCH (RBC) 31.7 pg (N) 27 - 31 pg [facility] [Entitic mass] [facility] (30921) MCHC (RBC) 34.6 g/dL (N) 32 - 36 g/dL [facility] alth [Mass/Vol] [facility] (78769) MCV (RBC) 91.5 fL (N) 80 - 100 fL [facility] Hea lth [Entitic vol] [facility] (37371) Monocytes (Bld) 0.498 10*3/uL (N) 0.3 - 0.9 Communit y Health [#/Vol] 10*3/uL [facility] (95673) Monocytes/100 6.3 % (N) 2 - 8 % Community [facility] alth WBC (Bld) [facility] (50332) Neutrophils 4.89 10*3/uL (N) 1.7 - 7 10*3/uL Communit y Health (Bld) [#/Vol] [facility] (50567) Neutrophils/100 61.9 % (N) 40 - 60 % [facility] WBC (Bld) [facility] (67550) Platelet mean 11.1 fL (N) 7.2 - 11.7 fL [facility] volume (Bld) [facility] [Entitic vol] [facility] (19270) Platelets (Bld) 209 10*3/uL (N) 150 - 450 [facility] [#/Vol] 10*3/uL [facility] (36091) Potassium 4.5 mmol/L (N) 3.7 - 5.2 mmol/L [facility] [Moles/Vol] [facility] (02053) Protein 7.1 g/dL (N) 6.4 - 8.3 g/dL [facility] [Mass/Vol] [facility] (89069) RBC (Bld) 5.05 10*6/uL (N) 4.2 - 6.1 [facility] Hea lth [#/Vol] 10*6/uL [facility] (69594) Sodium 138 mmol/L (N) 135 - 145 mmol/L [facility] [Moles/Vol] [facility] (68401) Triglyceride 97 mg/dL (N) 0 - 150 mg/dL [facility] [Mass/Vol] [facility] (13081) TSH Qn 0.79 m[IU]/L (N) 0.4 - 4 m[IU]/L [facility] (07379) Urea nitrogen 14 mg/dL (N) 7 - 20 mg/dL [facility] [Mass/Vol] [facility] (24627) Urea NOT APPLICABLE (no code) [facility] nitrogen/Creatin [facility] (43675) WBC (Bld) 7.9 10*3/uL (N) 3.5 - 10.5 [facility] th [#/Vol] 10*3/uL [facility] (95399) not yet categorized on 2018-05-31 Control Positive (no code) [facility] (03278) Exp date 08/18/2018 (no code) [facility] (21318) Lot # [id number] (no code) [facility] (50123) Vital Signs Vital Sign Value Interpretation Reference Date Time Care Prov ider Facility (Normalized) (Normalized) Range BMI (Body Mass 25.77 kg/m2 (no code) 15 - 25 kg/m2 06-13-2018 Jaime OLEARY Community Index) 17:40-0400 [address] [facility] (96721) Body 98 [degF] (no code) 97.8 - 99.0 06-13-2018 GARRY TIJERINA ER [facility] Temperature [degF] 17:40-0400 96275 [facility] (64506) Body weight 79.15 kg (no code) kg 06-13-2018 GARRY CEJA R [facility] 17:40-0400 56318 [facility] (17329) Height 175.26 cm (no code) cm 06-13-2018 GARRY OLEARY [facility] 17:40-0400 62314 [facility] (17651) Pulse Oximetry 96 % (no code) 95 - 100 % 06-13-2018 GARRY FERRELLIKER [facility] 17:40-[address] [place] [address] (70249) Interventions No Information Plan of Treatment Normalized Care Care Detail Care Activity Date Care Provider F acility Activity [facility] 01-04-2019 GARRY GONZALEZAMARILYS 66 762 [facility] DENTAL DENTAL [facility] (18426) Goals No Information Social History The data below is from unstructured sources History Response Recorde d Date/Time Alcohol Use Rarely Uses 11/13/12 10:38am Recreational Drug Use N 11/13/12 10:38am Functional Status The data below is from unstructured sourcesNo functional status results.No functional status information available.No functional status information available.No functional status information available.No functional status information available. Mental Status No Information Encounters Encounter Normalized Encounter Encounter Diagnosis Care Provi tyler Organization Date Type 10-26-2018 [facility] Pain in right ankle KALIE RODNEY (no [facility] (no phone) and joints of right phone) foot 06-13-2018 [facility] Nausea GARRY LISAKER (no [facility] (no phone) phone) 06-03-2018 [facility] Influenza due to other KALIE RODNEY ( no [facility] (no phone) identified influenza phone) virus with other respiratory manifestations 05-31-2018 [facility] Fever, unspecified KALIE RODNEY (no [facility] (no phone) phone) 05-27-2018 [facility] Family history of KALIE RODNEY (no [facility] (no phone) malignant neoplasm of phone) digestive organs 10-31-2018 [facility] Periapical abscess SIDDHARTHA BERNARDO T (no [facility] without sinus phone) CARE (no phone) 08-29-2018 [facility] Periapical abscess LILIANA CARSON T (no [facility] without sinus phone) CARE (no phone) 11-16-2018 [facility] Dental caries, ADONIS NEARING (no [facility] DENTAL unspecified phone) DENTAL (no phon e) 11-29-2012 [facility] no information NAUN JENNIFERVIRGILIO N (no [facility] phone) (no phone) 12-03-2018 Emergency department no information NATHAN BARFIELD no organization name - patient visit Work Phone: 12-03-2018 12-03-2018 Emergency department no information no name no organization name - patient visit 12-03-2018 11-27-2018 Emergency department no information NATHAN BARFIELD no organization name - patient visit Work Phone: 11-27-2018 NATHAN CRAWLEY 11-27-2018 Emergency department no information no name no organization name - patient visit 11-27-2018 09-08-2019 Patient encounter no information LEONOR CHEN (n o [facility] procedure phone) (no phone) [facility] (no phone) 05-08-2019 Patient encounter no information (no phone) [facility] procedure [facility] (no phone) 11-27-2018 Patient encounter no information no name no or ganization name procedure 11-16-2018 Patient encounter no information no name no or ganization name procedure 10-31-2018 Patient encounter no information no name no or ganization name procedure 10-26-2018 Patient encounter no information no name no or ganization name procedure 08-29-2018 Patient encounter no information no name no or ganization name procedure 08-29-2018 Patient encounter no information no name no or ganization name procedure 06-24-2018 Patient encounter no information no name no or ganization name procedure 06-13-2018 Patient encounter no information no name no or ganization name procedure 06-03-2018 Patient encounter no information no name no or ganization name procedure 05-31-2018 Patient encounter no information no name no or ganization name procedure 05-27-2018 Patient encounter no information no name no or ganization name procedure 06-06-2018 Telephone encounter no information KALIE RODNEY ( no [facility] (no phone) phone) no information Encounter for dental no name no organi zation name examination and cleaning without abnormal findings no information Encounter for general no name no organ ization name adult medical examination without abnormal findings Medical Equipment No Information Payers Normalized Payer Value [facility] [id number] ([id number]) Advance Directives Directive Response Recor ded Date Advance Directives N 10:38am Health Care Power of Reshipping Clerk N 11/13/12 10:38am Organ Donor N 11/13/12 1 0:38am Directive Response Recor ded Date/Time Advance Directives No 6:31pm Health Care Power of Reshipping Clerk No 10/11/13 6:31pm Organ Donor No 10/11/13 6:31pm Resuscitation Status Full Code 10/11/13 6:31pm Directive Response Recor ded Date/Time Advance Directives No 6:31pm Health Care Power of Reshipping Clerk No 10/11/13 6:31pm Organ Donor No 10/11/13 6:31pm Directive Response Recor ded Date/Time Advance Directives No 4:31pm Health Care Power of Reshipping Clerk No 12/03/18 4:31pm Organ Donor No 12/03/18 4:31pm Resuscitation Status Full Code 12/03/18 4:31pm Discharge Instructions No hospital discharge instructions.No hospital discharge instruction information available.No hospital discharge instruction information available. Chief Complaint and Reason for Visit Chief Complaint Dental Problems/Pain Reason for Visit [id number] Additional Source Comments This clinical document has been generated using [employer] software that has been certified by the Office of the National Coordinator for Health Information Technology (ONC 15.99.04.3023.Diam.31.00.0.781529) and the National Committee for Contract Associate Manager (NCQA, as an eMeasure certified technology). FOR RECORDS PERTAINING TO PATIENTS WHO ARE OR HAVE BEEN ENROLLED IN A CHEMICAL D EPENDENCY/SUBSTANCE ABUSE PROGRAM, SOME INFORMATION MAY BE OMITTED. This clinica l summary was aggregated from multiple sources. Caution should be exercised in using it in the provision of clinical care. This summary normalizes information from multiple sources, and as a consequence, information in this document may ma terially change the coding, format and clinical context of patient data. In abril tion, data may be omitted in some cases. CLINICAL DECISIONS SHOULD BE BASED ON T HE PRIMARY CLINICAL RECORDS. [employer] provides no warranty or guara ntee of the accuracy or completeness of information in this document.The followi information is based on time limited clinical information UNRECOGNIZED CONTENT PROVIDED BELOW FOR UNRECOGNIZED SECTION REASON FOR VISIT Congestion-ary silverman UNRECOGNIZED CONTENT PROVIDED BELOW FOR UNRECOGNIZED SECTION MEDICAL (GENERAL) HISTORY Type Description Date Surgical History right ankle when wa s 20 years old Surgical History colonoscopy 2017
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
== END 2019-09-25 19:50 | disposition home or self-care (01) ==
LOC: EDUNIT# 17:46 → ER 17:50
DX: Z20.828 Contact with and (suspected) exposure to other viral communicable diseases (principal); F41.9 Anxiety disorder, unspecified; F32.9 Major depressive disorder, single episode, unspecified; Z88.5 Allergy status to narcotic agent
CPT/HCPCS: 71045; 80053; 84145; 85025; 85379; 86141; 93005; 99284; U0002; 36415; 87635

== ENCOUNTER 2019-12-04 12:20 | Emergency (ER) | payer OTHER ==
[~2019-12-04] VITALS: Ht 175.3 cm; Wt 77.0 kg
[2019-12-04 12:36] VITALS: BP 120/80
--- NOTE | 2019-12-04 12:53 | ED EENT ---
History of Present Illness General Chief Complaint: Cough/Cold/Flu Symptoms Stated Complaint: COUGH;CHEST CONGESTION Nursing Triage Note: PT AMB TO RM 10 WITH COMPLAINT OF NASAL CONGESTION, SORE THROAT FOR ABOUT A MONTH. HAS BEEN SEEN BY PCP FOR SYMPTOMS. Source: patient Exam Limitations: no limitations History of Present Illness Date Seen by Provider: Dec 04, 2019 Time Seen by Provider: 12:28 Initial Comments Patient presents ER by private conveyance with chief complaint of sore throat worse in the morning without cough fever chills. He has had this for the past month. He's had it worked up extensively by Rakan akers at [facility] including ultrasounds, imaging, labs and throat swab. He has not been started on any medications. He has not taken anything himself [id number] except for throat lozenges without much success. He does not have any known medical problems. He is not having any shortness of breath, diarrhea, loss of sense of taste or smell. He does have a pending COVID-19 test. Allergies and Home Medications Allergies Coded Allergies: morphine (Unverified Allergy, Mild, swollen arm and lizzette, 10/18/09) Home Medications Clindamycin HCl 300 Mg Capsule, 300 MG PO TID Prescribed by: NATHAN CRAWLEY on 11/27/18 1807 Clindamycin HCl 300 Mg Capsule, 300 MG PO TID Prescribed by: NATHAN CRAWLEY on 12/03/18 1633 Hydrocodone Bit/Acetaminophen 1 Tab Tablet, 1 TAB PO Q6H PRN for PAIN Prescribed by: NATHAN CRAWLEY on 10/11/13 1840 Ibuprofen 800 Mg Tablet, 800 MG PO Q8H PRN for PAIN Prescribed by: NATHAN CRAWLEY on 09/15/19 1241 Naproxen 250 Mg Tablet, 1 EA PO TID PRN for PAIN FOR PAIN Prescribed by: NATHAN CRAWLEY on 10/11/13 1840 Patient Home Medication List Home Medication List Reviewed: Yes Review of Systems Review of Systems Constitutional: No chills, No diaphoresis Eyes: Denies Blurred Vision, Denies Drainage Ears: Denies Dizziness, Denies Pain Nose: denies clots, denies congestion Mouth: denies pain, denies swelling Throat: pain; denies swelling, denies discharge; hoarse, painful swallowing; denies difficulty with fluids Respiratory: No cough, No short of breath Cardiovascular: No chest pain, No palpitations Gastrointestinal: No abdominal pain, No nausea All Other Systems Reviewed Negative Unless Noted: Yes Past Qxawaup-Iyyrlw-Ahrxxn Hx Patient Social History Alcohol Use: Denies Use Recreational Drug Use: No (marijuana) Smoking Status: Current Everyday Smoker Recent Foreign Travel: No Contact w/Someone Who Travel: No Recent Infectious Disease Expo: No Recent Hopitalizations: No Immunizations Up To Date Tetanus Booster (TDap): Less than 5yrs Seasonal Allergies Seasonal Allergies: No Past Medical History Surgeries: Yes Orthopedic Respiratory: No Cardiac: No Neurological: No Reproductive Disorders: No Sexually Transmitted Disease: No Genitourinary: No Gastrointestinal: No Musculoskeletal: No Endocrine: No HEENT: No Cancer: No Psychosocial: Yes Anxiety, Depression Integumentary: No Blood Disorders: No Family Medical History No Pertinent Family Hx Physical Exam Vital Signs Vital Signs - First Documented 12/04/19 12:36 Temp 36.8 Pulse 78 Resp 20 B/P (MAP) 120/80 (93) Pulse Ox 99 O2 Delivery Room Air Height, Weight, BMI Height: 5'9.00" Weight: 185lbs. oz. 83.379464ri; 25.00 BMI Method:Stated General Appearance: WD/WN, no apparent distress Eyes: bilateral eye normal inspection, bilateral eye PERRL, bilateral eye EOMI Ears: bilateral ear auricle normal, bilateral ear canal normal, bilateral ear TM normal (bilateral otosclerosis) Nose: normal inspection; No active bleeding, No discharge, No sinus tenderness Mouth/Throat: normal mouth inspection, pharynx normal; No dental tenderness, No excessive drooling, No foreign body; other (injected, erythematous retropharynx without exudate or tonsillar swelling. Edentulous) Neck: non-tender, full range of motion, supple, normal inspection Cardiovascular: normal peripheral pulses, regular rate, rhythm Respiratory: lungs clear, normal breath sounds, no respiratory distress, no accessory muscle use Neurologic/Psychiatric: alert, normal mood/affect, oriented x 3 Progress/Results/Core Measures Results/Orders Vital Signs/I&O 12/04/19 12:36 Temp 36.8 Pulse 78 Resp 20 B/P (MAP) 120/80 (93) Pulse Ox 99 O2 Delivery Room Air Blood Pressure Mean: 93 Progress Progress Note : Time: 12:51 Progress Note Aseptic vital signs. Suspect he has postnasal drip as it's worse in the morning after he gets up. We'll put him on a topical steroid, antihistamines and nasal decongestant and have him follow-up in 2 weeks with primary care. Departure Impression Primary Impression: Postnasal drip Additional Impression: Pharyngitis Qualified Codes: J02.9 - Acute pharyngitis, unspecified Disposition: 01 HOME, SELF-CARE Condition: Stable Departure-Patient Inst. Decision time for Depature: 12:44 Referrals: [facility] (PCP) Primary Care Physician KALIE RODNEY (Family) Primary Care Physician Patient Instructions: Chlorpheniramine and Pseudoephedrine, Fluticasone (Nasal) Add. Discharge Instructions: supervisor calibration some Flonase and take one puff in each nostril daily for the next 4 weeks. supervisor calibration some Zyrtec/cetirizine or Claritin/loratadine and take 10 mg daily. If this is not helping in the first week then you may add nasal decongestant such as pseudoephedrine or chlorpheniramine. Chlorpheniramine 1 tablet at bedtime and every 4 hours afterwards that her symptoms become intolerable. May cause drowsiness. Plan to follow up with your primary care doctor in the next 2-4 weeks to assess your symptoms and continue management. All discharge instructions reviewed with patient and/or family. Voiced understanding. Scripts Chlorpheniramine Maleate (Chlorpheniramine Maleate) 4 Mg Tablet 4 MG PO HS for 30 Days, #30 TAB 0 Refills Prov: JULIETTE LEONE 12/04/19 Fluticasone Propionate (Fluticasone Propionate) 15.8 [place].susp 2 PUFF NS DAILY for 30 Days, #1 SPRAY 0 Refills Prov: JULIETTE LEONE 12/04/19 Loratadine (Loratadine) 10 Mg Tablet 10 MG PO DAILY for 30 Days, #30 TAB 0 Refills Prov: JULIETTE LEONE 12/04/19 JULIETTE LEONE Dec 04, 2019 12:53
[2019-12-04] MEDS ORDERED: CHLO4TAB36 PO (12:56)
[2019-12-04] MEDS ORDERED: LORA10TA7 PO (12:56)
[2019-12-04] MEDS ORDERED: FLUT15.845 NS (12:56)
== END 2019-12-04 13:00 | disposition home or self-care (01) ==
LOC: EDUNIT# 12:20 → ER 12:21
DX: R09.82 Postnasal drip (principal); J02.9 Acute pharyngitis, unspecified; F17.200 Nicotine dependence, unspecified, uncomplicated; Z20.828 Contact with and (suspected) exposure to other viral communicable diseases; Z88.5 Allergy status to narcotic agent
CPT/HCPCS: 99282

== ENCOUNTER 2020-01-01 16:15 | Emergency (ER) | payer OTHER ==
[~2020-01-01] VITALS: Ht 175 cm; Wt 75.0 kg
[~2020-01-01 16:15] MED LIST changes: +CHLO4TAB36 PO; +FLUT15.845 NS; +LORA10TA7 PO
[2020-01-01 18:29] LABS: BASOPHILS % (AUTO) 0 % (0-10); EOSINOPHILS # (AUTO) 0.1 10^3/uL (0.0-0.3); EOSINOPHILS % (AUTO) 1 % (0-10); HEMATOCRIT 44 % (40-54); HEMOGLOBIN 15.2 g/dL (13.3-17.7); LYMPHOCYTES # (AUTO) 3.2 10^3/uL (1.0-4.0); LYMPHOCYTES % (AUTO) 32 % (12-44); MEAN CORPUSCULAR HEMOGLOBIN 32 pg (25-34); MEAN CORPUSCULAR HGB CONC 35 g/dL (32-36); MEAN CORPUSCULAR VOLUME 93 fL (80-99); MEAN PLATELET VOLUME 10.7 fL (9.0-12.2); MONOCYTES # (AUTO) 0.5 10^3/uL (0.0-1.0); MONOCYTES % (AUTO) 5 % (0-12); NEUTROPHILS # (AUTO) 6.1 10^3/uL (1.8-7.8); NEUTROPHILS % (AUTO) 61 % (42-75); PLATELET COUNT 239 10^3/uL (130-400)
--- NOTE | 2020-01-01 18:39 | ED General ---
General Chief Complaint: General Problems/Pain Stated Complaint: COUGH;SOA;WEIGHT LOSS;VISION PROBLEMS Nursing Triage Note: PT COMES TO ER WITH C/O HEADACHES, SOB, NO FEVER, NOT BEEN EXPOSED TO COVID THAT HE IS AWARE. HE HAS BEEN SEEN AT [facility] FOR THIS A COUPLE OF WEEKS AGO AND THEY DID NOT DIAGNOSE HIM WITH ANYTHING Nursing Sepsis Screen: No Definite Risk Source of Information: Patient Exam Limitations: No Limitations History of Present Illness Date Seen by Provider: Jan 01, 2020 Time Seen by Provider: 17:35 Initial Comments To ER with headaches, shortness of breath, cough, blurred vision and poor appetite for at least a couple of months. He works at [employer] and has been swallowed a couple of times for coronavirus at work, all of them have been negative. He does continue to smoke. Has been using a friend's inhaler which has been helpful. Timing/Duration: 1-2 Days Severity: Moderate Associated Systoms: Cough, Loss of Appetite, Shortness of Air Allergies and Home Medications Allergies Coded Allergies: morphine (Unverified Allergy, Mild, swollen arm and lizzette, 10/18/09) Home Medications Chlorpheniramine Maleate 4 Mg Tablet, 4 MG PO HS Prescribed by: JULIETTE LEONE on 12/04/19 1256 Clindamycin HCl 300 Mg Capsule, 300 MG PO TID Prescribed by: NATHAN CRAWLEY on 11/27/18 180 Clindamycin HCl 300 Mg Capsule, 300 MG PO TID Prescribed by: NATHAN CRAWLEY on 12/03/18 1633 Fluticasone Propionate 15.8 Ml [place].susp, 2 PUFF NS DAILY Prescribed by: JULIETTE LEONE on 12/04/19 1256 Hydrocodone Bit/Acetaminophen 1 Tab Tablet, 1 TAB PO Q6H PRN for PAIN Prescribed by: NATHAN CRAWLEY on 10/11/13 184 Ibuprofen 800 Mg Tablet, 800 MG PO Q8H PRN for PAIN Prescribed by: NATHAN CRAWLEY on 09/15/19 1241 Loratadine 10 Mg Tablet, 10 MG PO DAILY Prescribed by: JULIETTE LEONE on 12/04/19 1256 Naproxen 250 Mg Tablet, 1 EA PO TID PRN for PAIN FOR PAIN Prescribed by: NATHAN CRAWLEY on 10/11/13 184 Patient Home Medication List Home Medication List Reviewed: Yes Review of Systems Review of Systems Constitutional: see HPI; No chills, No fever EENTM: see HPI, blurred vision Respiratory: see HPI, cough Cardiovascular: no symptoms reported Genitourinary: no symptoms reported Musculoskeletal: no symptoms reported Skin: no symptoms reported Psychiatric/Neurological: Headache Hematologic/Lymphatic: No Symptoms Reported Immunological/Allergic: no symptoms reported Past Agnnzyf-Cehkqh-Rfisyw Hx Patient Social History Alcohol Use: Denies Use Recreational Drug Use: No Smoking Status: Current Everyday Smoker Type Used: Cigarettes 2nd Hand Smoke Exposure: Yes Recent Foreign Travel: No Contact w/Someone Who Travel: No Recent Infectious Disease Expo: No Recent Hopitalizations: No Immunizations Up To Date Tetanus Booster (TDap): Less than 5yrs Date of Influenza Vaccine: Dec 27, 2018 Seasonal Allergies Seasonal Allergies: No Past Medical History Surgeries: Yes Orthopedic Respiratory: No Cardiac: No Neurological: No Reproductive Disorders: No Sexually Transmitted Disease: No Genitourinary: No Gastrointestinal: No Musculoskeletal: No Endocrine: No HEENT: No Cancer: No Psychosocial: Yes Anxiety, Depression Integumentary: No Blood Disorders: No Family Medical History No Pertinent Family Hx Physical Exam Vital Signs Vital Signs - First Documented 01/01/20 17:53 Temp 36.2 Pulse 79 Resp 16 B/P (MAP) 145/42 (76) Capillary Refill : Less Than 3 Seconds Height, Weight, BMI Height: 5'9.00" Weight: 185lbs. oz. 83.904498an; 24.00 BMI Method:Stated General Appearance: No Apparent Distress, WD/WN Eyes: Bilateral Eye Normal Inspection, Bilateral Eye PERRL, Bilateral Eye EOMI Neck: Full Range of Motion, Normal Inspection Respiratory: No Accessory Muscle Use, No Respiratory Distress, Other (bit of expiratory wheezing right lower lobe) Cardiovascular: Regular Rate, Rhythm, Normal Peripheral Pulses Gastrointestinal: Normal Bowel Sounds, Non Tender, Soft Neurologic/Psychiatric: Alert, Oriented x3 Skin: Normal Color, Warm/Dry Progress/Results/Core Measures Suspected Sepsis Recent Fever Within 48 Hours: No Infection Criteria Present: Suspected New Infection New/Unexplained Altered Menta: No Sepsis Screen: No Definite Risk SIRS Temperature: Pulse: 79 Respiratory Rate: 16 Laboratory Tests 01/01/20 18:03: White Blood Count 10.0 Blood Pressure 145 /42 Mean: 76 Laboratory Tests 01/01/20 18:03: Creatinine 0.83, Platelet Count 239 Results/Orders Lab Results Laboratory Tests Test 01/01/20 18:03 01/01/20 18:12 Range/Units White Blood Count 10.0 4.3-11.0 10^3/uL Red Blood Count 4.72 4.30-5.52 10^6/uL Hemoglobin 15.2 13.3-17.7 g/dL Hematocrit 44 40-54 % Mean Corpuscular Volume 93 80-99 fL Mean Corpuscular Hemoglobin 32 25-34 pg Mean Corpuscular Hemoglobin Concent 35 32-36 g/dL Red Cell Distribution Width 12.1 10.0-14.5 % Platelet Count 239 130-400 10^3/uL Mean Platelet Volume 10.7 9.0-12.2 fL Immature Granulocyte % (Auto) 0 % Neutrophils (%) (Auto) 61 42-75 % Lymphocytes (%) (Auto) 32 12-44 % Monocytes (%) (Auto) 5 0-12 % Eosinophils (%) (Auto) 1 0-10 % Basophils (%) (Auto) 0 0-10 % Neutrophils # (Auto) 6.1 1.8-7.8 10^3/uL Lymphocytes # (Auto) 3.2 1.0-4.0 10^3/uL Monocytes # (Auto) 0.5 0.0-1.0 10^3/uL Eosinophils # (Auto) 0.1 0.0-0.3 10^3/uL Basophils # (Auto) 0.0 0.0-0.1 10^3/uL Immature Granulocyte # (Auto) 0.0 0.0-0.1 10^3/uL Sodium Level 139 135-145 MMOL/L Potassium Level 3.6 3.6-5.0 MMOL/L Chloride Level 103 98-107 MMOL/L Carbon Dioxide Level 22 21-32 MMOL/L Anion Gap 14 5-14 MMOL/L Blood Urea Nitrogen 10 7-18 MG/DL Creatinine 0.83 0.60-1.30 MG/DL Estimat Glomerular Filtration Rate > 60 BUN/Creatinine Ratio 12 Glucose Level 94 70-105 MG/DL Calcium Level 9.2 8.5-10.1 MG/DL C-Reactive Protein High Sensitivity 0.10 0.00-0.50 MG/DL My Orders Orders - NATHAN CRAWLEY TURPENTINE FARMER Cbc With Automated Diff (01/01/20 17:42) Hs C Reactive Protein (10/5/20 17:42) Basic Metabolic Panel (01/01/20 17:42) Chest 1 View, Ap/Pa Only (01/01/20 17:42) Coronavirus Sars-Cov-2 So 2019 (01/01/20 17:42) Ct Head Wo (01/01/20 18:09) Vital Signs/I&O 01/01/20 17:53 Temp 36.2 Pulse 79 Resp 16 B/P (MAP) 145/42 (76) Capillary Refill : Less Than 3 Seconds Blood Pressure Mean: 76 Departure Impression Primary Impression: General symptom Disposition: HOME, SELF-CARE Condition: Stable Departure-Patient Inst. Decision time for Depature: 19:13 Referrals: [facility] (PCP) Primary Care Physician KALIE RODNEY (Family) Primary Care Physician Patient Instructions: NO INSTRUCTIONS GIVEN Add. Discharge Instructions: 1. Follow-up with [facility]. Take the steroids and the inhaler as directed. All discharge instructions reviewed with patient and/or family. Voiced understanding. Scripts Prednisone (Prednisone) 20 Mg Tab 40 MG PO DAILY, #6 TAB 0 Refills Prov: NATHAN CRAWLEY [employer]PENTINE FARMER 01/01/20 NATHAN CRAWLEY [employer]PENTINE FARMER Jan 01, 2020 18:39
[2020-01-01 18:56] LABS: CHLORIDE 103 MMOL/L (98-107); POTASSIUM 3.6 MMOL/L (3.6-5.0); SODIUM 139 MMOL/L (135-145)
[2020-01-01 18:57] LABS: CALCIUM 9.2 MG/DL (8.5-10.1)
[2020-01-01 18:58] LABS: GLUCOSE 94 MG/DL (70-105)
--- NOTE | 2020-01-01 18:58 | Diagnostic Imaging Report ---
EXAMINATION: CT head without contrast. TECHNIQUE: Multiple contiguous axial images were obtained through the brain without the use of intravenous contrast. All CT scans use one or more of the following dose optimizing techniques: automated exposure control, MA and/or KvP adjustment based on a patient size and exam type, or iterative reconstruction. HISTORY: Headache. Blurry vision. COMPARISON: 02/05/2008. FINDINGS: No large acute territorial ischemia, mass, or hemorrhage. No midline shift or mass effect. The ventricles, cortical sulci, and basilar cisterns are patent and unremarkable. The orbits are normal. Paranasal sinuses are normal. Mastoid air cells are clear. No soft tissue abnormality is seen. No osseus lesions or fractures are seen. IMPRESSION: 1. No large acute territorial ischemia, mass, or hemorrhage. Dictated by: Dictated on workstation # [id number]
[2020-01-01 18:59] LABS: CARBON DIOXIDE 22 MMOL/L (21-32)
[2020-01-01 19:02] LABS: BUN/CREATININE RATIO 12; CREATININE SERUM 0.83 MG/DL (0.60-1.30); GFR ESTIMATED > 60
--- NOTE | 2020-01-01 19:12 | Diagnostic Imaging Report ---
EXAMINATION: Chest 1 view HISTORY: Cough. Shortness of breath. COMPARISON: Chest radiograph on 09/25/2019. FINDINGS: The lung volumes are normal. No focal consolidation is seen. No large pleural effusion or pneumothorax is seen. The cardiomediastinal silhouette is normal in size and contour. No acute osseous abnormality is seen. IMPRESSION: 1. No acute pleuroparenchymal process. Dictated by: Dictated on workstation # [id number]
[2020-01-01] MEDS ORDERED: PRD20T PO (19:14)
[2020-01-01] MEDS ORDERED: RX-ALBUTEROL INHALER (VENTOLIN HFA) 18 GM IH STA (19:14)
[2020-01-01] MEDS ORDERED: predniSONE 20 MG TAB PO ONE (19:15)
[2020-01-01 19:30] VITALS: BP 149/72
== END 2020-01-01 19:30 | disposition home or self-care (01) ==
LOC: EDUNIT# 16:15 → ER 16:16
DX: R68.89 Other general symptoms and signs (principal); Z20.828 Contact with and (suspected) exposure to other viral communicable diseases; F17.210 Nicotine dependence, cigarettes, uncomplicated; Z88.5 Allergy status to narcotic agent
CPT/HCPCS: 70450; 71045; 80048; 85025; 86141; 99282; U0002; 36415; 87635

== ENCOUNTER 2020-01-07 16:33 | Emergency (ER) | payer OTHER ==
[~2020-01-07] VITALS: Ht 175.3 cm; Wt 74.9 kg
[~2020-01-07 16:33] MED LIST changes: +PRD20T PO
[2020-01-07 16:48] VITALS: BP 122/66
--- NOTE | 2020-01-07 17:14 | ED EENT ---
History of Present Illness General Chief Complaint: Eye Problems Stated Complaint: HEADACHE, SORE THROAT, VISION LOSS Nursing Triage Note: PT AMBULATE TO ROOM 08 WITH C/O VISION LOSS, HEADACHE, AND MOOD SWINGS. PT REPORTS BEING TESTED FOR COVID ON WEDNESDAY AND RESULTS WERE NEGATIVE. PT STATES HE HAS AN APPT WITH HIS PCP ON WEDNESDAY BUT THE SYMPTOMS ARE GETTING WORSE. History of Present Illness Date Seen by Provider: Jan 07, 2020 Time Seen by Provider: 16:50 Initial Comments 34-year-old male presents for chronic vision changes intermittent headaches and mood swings. He has been having vision changes intermittently since May of this year. He's had multiple COVID test done which have been positive. He was last seen here on 01/01/20 and had a negative COVID test. He had extensive workup, which was all negative. He denies specific changes in his vision today. He does report when looking up at the halle, he sees dark spots. No vision loss, central or peripheral. He has not seen an brand analyst for over 3 years. He doesn't appointment with his primary care provider 01/10/20 and he is going to seek referral to an brand analyst. He reports the mid swings have been this week, discussed that he was started on prednisone and taking that when he noted the changes. He denies any fevers, shortness of air, changes in taste or smell, or rash. He is using an unnn-kab-pbbzsob allergy pill, he is not using the nasal allergy medicine regularly. Timing/Duration: intermittent Severity: mild Location: eye (R), eye (L) Prearrival Treatment: no prearrival treatment Associated Symptoms: denies symptoms Allergies and Home Medications Allergies Coded Allergies: morphine (Unverified Allergy, Mild, swollen arm and lizzette, 10/18/09) Home Medications Chlorpheniramine Maleate 4 Mg Tablet, 4 MG PO HS Prescribed by: JULIETTE LEONE on 12/04/19 1256 Clindamycin HCl 300 Mg Capsule, 300 MG PO TID Prescribed by: NATHAN CRAWLEY on 11/27/18 1807 Clindamycin HCl 300 Mg Capsule, 300 MG PO TID Prescribed by: NATHAN CRAWLEY on 12/03/18 1633 Fluticasone Propionate 15.8 Ml [place].susp, 2 PUFF NS DAILY Prescribed by: JULIETTE LEONE on 12/04/19 1256 Hydrocodone Bit/Acetaminophen 1 Tab Tablet, 1 TAB PO Q6H PRN for PAIN Prescribed by: NATHAN CRAWLEY on 10/11/13 184 Ibuprofen 800 Mg Tablet, 800 MG PO Q8H PRN for PAIN Prescribed by: NATHAN CRAWLEY on 09/15/19 1241 Loratadine 10 Mg Tablet, 10 MG PO DAILY Prescribed by: JULIETTE LEONE on 12/04/19 1256 Naproxen 250 Mg Tablet, 1 EA PO TID PRN for PAIN FOR PAIN Prescribed by: NATHAN CRAWLEY on 10/11/13 184 Prednisone 20 Mg Tab, 40 MG PO DAILY Prescribed by: NATHAN CRAWLEY on 01/01/20 191 Patient Home Medication List Home Medication List Reviewed: Yes Review of Systems Review of Systems Constitutional: no symptoms reported, see HPI Eyes: See HPI; Denies Blurred Vision; Decreased Acuity; Denies Foreign Body Sensation, Denies Inflammation, Denies Pain, Denies Photophobia, Denies Shadows, Denies Tunnel Vision (nonspecific); Vision Changes; Denies Contact Lenses, Denies Glasses Throat: no symptoms reported, see HPI Respiratory: no symptoms reported, see HPI; No cough, No short of breath Cardiovascular: no symptoms reported, see HPI; No chest pain Gastrointestinal: no symptoms reported, see HPI; No abdominal pain, No loss of appetite, No nausea, No vomiting Musculoskeletal: no symptoms reported, see HPI Skin: no symptoms reported, see HPI All Other Systems Reviewed Negative Unless Noted: Yes Past Mydljvk-Mclkph-Samlhw Hx Past Med/Social Hx: Reviewed Nursing Past Med/Soc Hx Patient Social History Alcohol Use: Denies Use Recreational Drug Use: Yes (SMOKES MARIJUANA) Smoking Status: Current Everyday Smoker Type Used: Cigarettes 2nd Hand Smoke Exposure: Yes Recent Foreign Travel: No Contact w/Someone Who Travel: No Recent Infectious Disease Expo: No Recent Hopitalizations: No Physical Abuse: No Sexual Abuse: No Mistreated: No Fear: No Immunizations Up To Date Tetanus Booster (TDap): Less than 5yrs Date of Influenza Vaccine: Dec 27, 2018 Seasonal Allergies Seasonal Allergies: No Past Medical History Surgeries: Yes Orthopedic Respiratory: No Cardiac: No Neurological: No Reproductive Disorders: No Sexually Transmitted Disease: No Genitourinary: No Gastrointestinal: No Musculoskeletal: No Endocrine: No HEENT: No Cancer: No Psychosocial: Yes Anxiety, Depression Integumentary: No Blood Disorders: No Family Medical History No Pertinent Family Hx Visual Acuity : Eye Location: Bilaterally Vision Acuity Degree: 20/20 Physical Exam Vital Signs Vital Signs - First Documented 01/07/20 16:48 Temp 36.7 Pulse 76 Resp 17 B/P (MAP) 122/66 (84) O2 Delivery Room Air Height, Weight, BMI Height: 5'9.00" Weight: 185lbs. oz. 83.437028id; 24.00 BMI Method:Stated General Appearance: WD/WN, no apparent distress Eyes: bilateral eye normal inspection, bilateral eye PERRL, bilateral eye EOMI, bilateral eye other (Normal opthalmoscopic exam optic disc well visualized. ) Ears: bilateral ear auricle normal, bilateral ear canal normal, bilateral ear TM normal Nose: normal inspection; No discharge Mouth/Throat: normal mouth inspection, pharynx normal; No dental tenderness Neck: non-tender, full range of motion, supple, normal inspection Cardiovascular: normal peripheral pulses, regular rate, rhythm Respiratory: chest non-tender, lungs clear, normal breath sounds Gastrointestinal: normal bowel sounds, non tender, soft Neurologic/Psychiatric: no motor/sensory deficits, alert, normal mood/affect, oriented x 3 Skin: normal color, warm/dry; No rash Progress/Results/Core Measures Results/Orders Vital Signs/I&O 01/07/20 16:48 Temp 36.7 Pulse 76 Resp 17 B/P (MAP) 122/66 (84) O2 Delivery Room Air Blood Pressure Mean: 84 Departure Impression Primary Impression: Vision changes Additional Impression: General medical exam Disposition: HOME, SELF-CARE Condition: Improved Departure-Patient Inst. Decision time for Depature: 17:05 Referrals: [facility] (PCP) Primary Care Physician KALIE RODNEY (Family) Primary Care Physician Patient Instructions: How to Care for Your Eyes Add. Discharge Instructions: Follow up at [facility] for referral to brand analyst. Continue to usual allergy nasal spray and medications as prescribed. No driving if you are having visual changes. Return to the emergency department for new, urgent health care problems. All discharge instructions reviewed with patient and/or family. Voiced understanding. MANNY RAO Jan 07, 2020 17:13
== END 2020-01-07 17:25 | disposition home or self-care (01) ==
LOC: EDUNIT# 16:33 → ER 16:34
DX: H53.9 Unspecified visual disturbance (principal); F17.210 Nicotine dependence, cigarettes, uncomplicated; Z20.828 Contact with and (suspected) exposure to other viral communicable diseases; Z79.52 Long term (current) use of systemic steroids; Z88.5 Allergy status to narcotic agent
CPT/HCPCS: 99282

== ENCOUNTER 2020-03-02 15:29 | Emergency (ER) | payer OTHER ==
[~2020-03-02] VITALS: Ht 175 cm; Wt 74.8 kg
[~2020-03-02 15:29] MED LIST changes: -CLIN300C11 PO; +CLIN300C12 PO
--- NOTE | 2020-03-02 15:34 | ED General ---
General Stated Complaint: SORE THROAT, COUGH, BODYACHES Source of Information: Patient Exam Limitations: No Limitations History of Present Illness Date Seen by Provider: Mar 02, 2020 Time Seen by Provider: 16:04 Initial Comments To ER with reports of a persistent cough and shortness of breath since he was here last. He is also had a rash to the anterior portion of both of his thighs for many years that is not itchy. Timing/Duration: 1-2 Days Severity: Moderate Associated Systoms: Cough Allergies and Home Medications Allergies Coded Allergies: morphine (Unverified Allergy, Mild, swollen arm and lizzette, 10/18/09) Home Medications Ammonium Lactate 226 Gm Lotion, 226 GM TP BID Prescribed by: NATHAN CRAWLEY on 03/02/20 1602 Chlorpheniramine Maleate 4 Mg Tablet, 4 MG PO HS Prescribed by: JULIETTE LEONE on 12/04/19 1256 Clindamycin HCl 300 Mg Capsule, 300 MG PO TID Prescribed by: NATHAN CRAWLEY on 11/27/18 1807 Clindamycin HCl 300 Mg Capsule, 300 MG PO TID Prescribed by: NATHAN CRAWLEY on 12/03/18 1633 Fluticasone Propionate 15.8 Ml [place].susp, 2 PUFF NS DAILY Prescribed by: JULIETTE LEONE on 12/04/19 1256 Hydrocodone Bit/Acetaminophen 1 Tab Tablet, 1 TAB PO Q6H PRN for PAIN Prescribed by: NATHAN CRAWLEY on 10/11/13 1840 Ibuprofen 800 Mg Tablet, 800 MG PO Q8H PRN for PAIN Prescribed by: NATHAN CRAWLEY on 09/15/19 1241 Loratadine 10 Mg Tablet, 10 MG PO DAILY Prescribed by: JULIETTE LEONE on 12/04/19 1256 Naproxen 250 Mg Tablet, 1 EA PO TID PRN for PAIN FOR PAIN Prescribed by: NATHAN CRAWLEY on 10/11/13 1840 Prednisone 20 Mg Tab, 40 MG PO DAILY Prescribed by: NATHAN CRAWLEY on 01/01/20 1914 Patient Home Medication List Home Medication List Reviewed: Yes Review of Systems Review of Systems Constitutional: see HPI; No chills, No fever EENTM: see HPI Respiratory: see HPI, cough Cardiovascular: no symptoms reported Genitourinary: no symptoms reported Musculoskeletal: no symptoms reported Skin: no symptoms reported Psychiatric/Neurological: No Symptoms Reported Hematologic/Lymphatic: No Symptoms Reported Immunological/Allergic: no symptoms reported Past Xsnjlaq-Swvutr-Eajvfc Hx Patient Social History Type Used: Cigarettes 2nd Hand Smoke Exposure: Yes Recent Hopitalizations: No Immunizations Up To Date Tetanus Booster (TDap): Less than 5yrs Date of Influenza Vaccine: Dec 27, 2018 Seasonal Allergies Seasonal Allergies: No Past Medical History Surgeries: Yes Orthopedic Respiratory: No Cardiac: No Neurological: No Reproductive Disorders: No Sexually Transmitted Disease: No Genitourinary: No Gastrointestinal: No Musculoskeletal: No Endocrine: No HEENT: No Cancer: No Psychosocial: Yes Anxiety, Depression Integumentary: No Blood Disorders: No Family Medical History No Pertinent Family Hx Physical Exam Vital Signs Vital Signs - First Documented 03/02/20 03/02/20 15:56 16:01 Temp 36.4 Pulse 76 Resp 18 B/P (MAP) 120/72 (88) Pulse Ox 99 O2 Delivery Room Air Capillary Refill : Height, Weight, BMI Height: 5'9.00" Weight: 185lbs. oz. 83.603326fh; 24.00 BMI Method:Stated General Appearance: No Apparent Distress, WD/WN, Other (Alert and oriented, pleasant.) Eyes: Bilateral Eye Normal Inspection, Bilateral Eye PERRL HEENT: PERRL/EOMI, TMs Normal Neck: Full Range of Motion Respiratory: Normal Breath Sounds, No Accessory Muscle Use, No Respiratory Distress, Other (I kindly brushed the pile of cigarette abad off of his chest prior to listening to lung sounds) Cardiovascular: Regular Rate, Rhythm, Normal Peripheral Pulses Gastrointestinal: Non Tender, Soft Neurologic/Psychiatric: Alert, Oriented x3 Skin: Normal Color, Warm/Dry Lymphatic: Other (Papular rash to both thighs consistent with keratosis Pilaris.) Progress/Results/Core Measures Suspected Sepsis SIRS Temperature: Pulse: Respiratory Rate: Blood Pressure / Mean: Results/Orders My Orders Orders - NATHAN CRAWLEY APRN Coronavirus Sars-Cov-2 So 2019 (03/02/20 15:34) Influenza A And B Antigens (03/02/20 15:34) Vital Signs/I&O 03/02/20 03/02/20 15:56 16:01 Temp 36.4 Pulse 76 Resp 18 B/P (MAP) 120/72 (88) Pulse Ox 99 O2 Delivery Room Air Capillary Refill : Departure Impression Primary Impression: General symptom Additional Impression: Keratosis pilaris Disposition: 01 HOME, SELF-CARE Condition: Stable Departure-Patient Inst. Decision time for Depature: 15:32 Referrals: [facility] (PCP) Primary Care Physician KALIE RODNEY (Family) Primary Care Physician Patient Instructions: Keratosis Pilaris, NO INSTRUCTIONS GIVEN Add. Discharge Instructions: 1. Tylenol and motrin for body aches. Return to Er for any concerns. Follow up with your doctor next week. Stay quarantined until your COVID results come back tomorrow. Emergency department focuses on treating and ruling out life- threatening diseases. Whenever possible, a diagnosis is given. However, most patients are given an impression based on their history, physical exam, and workup during your brief time in the ER. Information about probable diagnosis and other educational material has been provided. Please take the time to read and understand this information. It is very important that you follow up with a physician as discussed during the visit today. Failure to adhere to your follow-up instructions may lead to severe disability, injury, or so please make sure to keep your appointments or obtain one as requested. Scripts Ammonium Lactate (Ammonium Lactate) 226 Gm Lotion 226 GM TP BID, #226 ML Prov: NATHAN CRAWLEY APRN 03/02/20 Work/School Note: Work Release Form Date Seen in the Emergency Department: Mar 02, 2020 Return to Work: Mar 07, 2020 Restrictions: Need Release from Doctor NATHAN CRAWLEY APRN Mar 02, 2020 15:34
[2020-03-02] MEDS ORDERED: AMMO225L5 TP (16:02)
[2020-03-02 16:05] VITALS: BP 124/80
--- NOTE | 2020-03-03 13:07 | NUR ---
Follow up note: Pt called regarding his test results; flu restult was given to him over the phone. Covid test not resulted yet but advised him that he would recieve a phone call with the result.
== END 2020-03-02 16:05 | disposition home or self-care (01) ==
LOC: EDUNIT# 15:29 → ER 15:30
DX: R68.89 Other general symptoms and signs (principal); L85.8 Other specified epidermal thickening; Z20.828 Contact with and (suspected) exposure to other viral communicable diseases; Z88.5 Allergy status to narcotic agent; Z77.22 Contact with and (suspected) exposure to environmental tobacco smoke (acute) (chronic); Z79.52 Long term (current) use of systemic steroids
CPT/HCPCS: 87804; 99282; U0002; 87635

== ENCOUNTER 2020-03-05 13:52 | Emergency (ER) | payer OTHER ==
[~2020-03-05] VITALS: Ht 175 cm; Wt 75.0 kg
[~2020-03-05 13:52] MED LIST changes: +AMMO225L5 TP
--- NOTE | 2020-03-05 14:39 | ED General ---
General Chief Complaint: Neurological Problems Stated Complaint: WEAKNESS Source of Information: Patient Exam Limitations: No Limitations History of Present Illness Date Seen by Provider: Mar 05, 2020 Time Seen by Provider: 14:37 Initial Comments 34-year-old male presents with just not feeling well, body aches, generalized weakness, sore throat. Patient was seen here on 03/02/20 and had a COVID swelled was negative. Patient reports he followed up with his primary care provider yesterday and was evaluated and a did not find anything. Patient comes in today because he continues to just did not feel well patient is very vague in his symptoms. States he has a subjective fever and some chills.. Allergies and Home Medications Allergies Coded Allergies: morphine (Unverified Allergy, Mild, swollen arm and lizzette, 10/18/09) Home Medications Ammonium Lactate 226 Gm Lotion, 226 GM TP BID Prescribed by: NATHAN CRAWLEY on 03/02/20 1602 Chlorpheniramine Maleate 4 Mg Tablet, 4 MG PO HS Prescribed by: JULIETTE LEONE on 12/04/19 1256 Clindamycin HCl 300 Mg Capsule, 300 MG PO TID Prescribed by: NATHAN CRAWLEY on 11/27/18 1807 Clindamycin HCl 300 Mg Capsule, 300 MG PO TID Prescribed by: NATHAN CRAWLEY on 12/03/18 1633 Fluticasone Propionate 15.8 Ml [place].susp, 2 PUFF NS DAILY Prescribed by: JULIETTE LEONE on 12/04/19 1256 Hydrocodone Bit/Acetaminophen 1 Tab Tablet, 1 TAB PO Q6H PRN for PAIN Prescribed by: NATHAN CRAWLEY on 10/11/13 1840 Ibuprofen 800 Mg Tablet, 800 MG PO Q8H PRN for PAIN Prescribed by: NATHAN CRAWLEY on 09/15/19 1241 Loratadine 10 Mg Tablet, 10 MG PO DAILY Prescribed by: JULIETTE LEONE on 12/04/19 1256 Naproxen 250 Mg Tablet, 1 EA PO TID PRN for PAIN FOR PAIN Prescribed by: NATHAN CRAWLEY on 10/11/13 184 Prednisone 20 Mg Tab, 40 MG PO DAILY Prescribed by: NATHAN CRAWLEY on 01/01/20 1914 Patient Home Medication List Home Medication List Reviewed: Yes Review of Systems Review of Systems Constitutional: chills, fever (subjective), malaise, weakness EENTM: throat pain Respiratory: No cough, No short of breath Cardiovascular: no symptoms reported Gastrointestinal: no symptoms reported Musculoskeletal: other (generalized body aches) Past Xaynurx-Pehxax-Lkzivi Hx Patient Social History Type Used: Cigarettes 2nd Hand Smoke Exposure: Yes Recent Hopitalizations: No Immunizations Up To Date Tetanus Booster (TDap): Less than 5yrs Date of Influenza Vaccine: Dec 27, 2018 Seasonal Allergies Seasonal Allergies: No Past Medical History Surgeries: Yes Orthopedic Respiratory: Yes Asthma Cardiac: No Neurological: No Reproductive Disorders: No Sexually Transmitted Disease: No Genitourinary: No Gastrointestinal: No Musculoskeletal: No Endocrine: No HEENT: No Cancer: No Psychosocial: Yes Anxiety, Depression Integumentary: No Blood Disorders: No Family Medical History No Pertinent Family Hx Physical Exam Vital Signs Vital Signs - First Documented 03/05/20 14:35 Temp 36.8 Pulse 83 Resp 18 B/P (MAP) 126/78 (94) Pulse Ox 97 O2 Delivery Room Air Capillary Refill : Height, Weight, BMI Height: 5'9.00" Weight: 185lbs. oz. 83.803791dt; 24.00 BMI Method:Stated General Appearance: No Apparent Distress, WD/WN HEENT: Pharyngeal Erythema; No Tonsillar Exudate Neck: Lymphadenopathy (L), Lymphadenopathy (R) Respiratory: Lungs Clear, Normal Breath Sounds Cardiovascular: Regular Rate, Rhythm, No Edema Gastrointestinal: Non Tender, Soft Extremity: Normal Capillary Refill, Normal Inspection Neurologic/Psychiatric: Alert, Oriented x3, No Motor/Sensory Deficits, Normal Mood/Affect, drill instructor II-XII Norm as Tested Progress/Results/Core Measures Suspected Sepsis SIRS Temperature: Pulse: Respiratory Rate: Laboratory Tests 03/05/20 14:40: White Blood Count 9.6 Blood Pressure / Mean: Laboratory Tests 03/05/20 14:40: Creatinine 0.95, Platelet Count 256, Total Bilirubin 1.1H Results/Orders Lab Results Laboratory Tests Test 03/05/20 14:40 Range/Units White Blood Count 9.6 4.3-11.0 10^3/uL Red Blood Count 5.20 4.35-5.85 10^6/uL Hemoglobin 16.6 13.3-17.7 G/DL Hematocrit 48 40-54 % Mean Corpuscular Volume 93 80-99 FL Mean Corpuscular Hemoglobin 32 25-34 PG Mean Corpuscular Hemoglobin Concent 34 32-36 G/DL Red Cell Distribution Width 12.0 10.0-14.5 % Platelet Count 256 130-400 10^3/uL Mean Platelet Volume 10.0 7.4-10.4 FL Neutrophils (%) (Auto) 67 42-75 % Lymphocytes (%) (Auto) 26 12-44 % Monocytes (%) (Auto) 6 0-12 % Eosinophils (%) (Auto) 1 0-10 % Basophils (%) (Auto) 0 0-10 % Neutrophils # (Auto) 6.4 1.8-7.8 X 10^3 Lymphocytes # (Auto) 2.4 1.0-4.0 X 10^3 Monocytes # (Auto) 0.6 0.0-1.0 X 10^3 Eosinophils # (Auto) 0.1 0.0-0.3 10^3/uL Basophils # (Auto) 0.0 0.0-0.1 10^3/uL Urine Color YELLOW Urine Clarity CLEAR Urine pH 7.0 5-9 Urine Specific [place] 1.020 1.016-1.022 Urine Protein NEGATIVE NEGATIVE Urine Glucose (UA) NEGATIVE NEGATIVE Urine Ketones 1+ H NEGATIVE Urine Nitrite NEGATIVE NEGATIVE Urine Bilirubin NEGATIVE NEGATIVE Urine Urobilinogen 1.0 < = 1.0 MG/DL Urine Leukocyte Esterase NEGATIVE NEGATIVE Urine RBC (Auto) NEGATIVE NEGATIVE Urine RBC RARE /HPF Urine WBC NONE /HPF Urine Squamous Epithelial Cells RARE /HPF Urine Crystals NONE /LPF Urine Bacteria NEGATIVE /HPF Urine Casts NONE /LPF Urine Mucus NEGATIVE /LPF Urine Culture Indicated NO Sodium Level 139 135-145 MMOL/L Potassium Level 3.6 3.6-5.0 MMOL/L Chloride Level 102 98-107 MMOL/L Carbon Dioxide Level 26 21-32 MMOL/L Anion Gap 11 5-14 MMOL/L Blood Urea Nitrogen 9 7-18 MG/DL Creatinine 0.95 0.60-1.30 MG/DL Estimat Glomerular Filtration Rate > 60 BUN/Creatinine Ratio 9 Glucose Level 101 70-105 MG/DL Calcium Level 9.1 8.5-10.1 MG/DL Corrected Calcium 8.5-10.1 MG/DL Total Bilirubin 1.1 H 0.1-1.0 MG/DL Aspartate Amino Transf (AST/SGOT) 17 5-34 U/L Alanine Aminotransferase (ALT/SGPT) 19 0-55 U/L Alkaline Phosphatase 55 40-136 U/L C-Reactive Protein High Sensitivity 0.10 0.00-0.50 MG/DL Total Protein 8.1 6.4-8.2 GM/DL Albumin 4.7 H 3.2-4.5 GM/DL Procalcitonin 0.02 <0.10 NG/ML Urine Opiates Screen NEGATIVE NEGATIVE Urine Oxycodone Screen NEGATIVE NEGATIVE Urine Methadone Screen NEGATIVE NEGATIVE Urine Propoxyphene Screen NEGATIVE NEGATIVE Urine Barbiturates Screen NEGATIVE NEGATIVE Ur Tricyclic Antidepressants Screen NEGATIVE NEGATIVE Urine Phencyclidine Screen NEGATIVE NEGATIVE Urine Amphetamines Screen NEGATIVE NEGATIVE Urine Methamphetamines Screen NEGATIVE NEGATIVE Urine Benzodiazepines Screen NEGATIVE NEGATIVE Urine Cocaine Screen NEGATIVE NEGATIVE Urine Cannabinoids Screen POSITIVE H NEGATIVE Monoscreen NEGATIVE NEGATIVE Group A Streptococcus Screen NEGATIVE NEGATIVE Micro Results Microbiology 03/05/20 Influenza Types A,B Antigen (AHMET) - Final, Complete My Orders Orders - JESSE POTTER DO Cbc With Automated Diff (03/05/20 14:35) Comprehensive Metabolic Panel (03/05/20 14:35) Hs C Reactive Protein (03/05/20 14:35) Drug Screen Stat (Urine) (03/05/20 14:35) Monotest (03/05/20 14:35) Procalcitonin (Pct) (03/05/20 14:35) Rapid Strep A Screen (03/05/20 14:35) Ua Culture If Indicated (03/05/20 14:35) Influenza A And B Antigens (03/05/20 14:35) [place] Dna Urine Test (03/05/20 15:57) Chlamydia Trachomatis Urine (03/05/20 15:57) Vital Signs/I&O 03/05/20 14:35 Temp 36.8 Pulse 83 Resp 18 B/P (MAP) 126/78 (94) Pulse Ox 97 O2 Delivery Room Air Capillary Refill : Progress Note : Time: 15:55 Progress Note Patient with no signs of an acute infection. Patient has a negative white count, negative CRP, negative pro calcitonin, negative strep, mono, influenza was negative for COVID couple days ago. He has had 3 visits with medical professional in the last 4 days with all negative workups. He did request to be screen for an STD. I will add a urine GC chlamydia and we will call him if positive. Patient's otherwise stable and will be discharged home Departure Impression Primary Impression: Malaise and fatigue Disposition: 01 HOME, SELF-CARE Condition: Stable Departure-Patient Inst. Referrals: [facility] ([place]) Primary Care Physician KALIE RODNEY (Family) Primary Care Physician Patient Instructions: Fatigue, Weakness ED Add. Discharge Instructions: Follow-up with your primary care provider for further outpatient evaluation . Emergency department focuses on treating and ruling out life-threatening di seases. Whenever possible, a diagnosis is given. However, most patients are given an impression based on their history, physical exam, and workup during your brief time in the ER. Information about probable diagnosis and other educational material has been provided. Please take the time to read and understand this information. It is very important that you follow up with a physician as discussed during the visit today. Failure to adhere to your follow-up instructions may lead to severe disability, injury, or so please make sure to keep your appointments or obtain one as requested. Please keep in mind the emergency department is not designed to your primary care or "family doctor" and nonurgent issues are best evaluated by an outpatient physician All discharge instructions reviewed with patient and/or family. Voiced understanding. JESSE POTTER DO Mar 05, 2020 14:39
[2020-03-05 15:01] LABS: BILIRUBIN,URINE NEGATIVE (NEGATIVE); CLARITY,URINE CLEAR; COLOR,URINE YELLOW; GLUCOSE, URINE (UA) NEGATIVE (NEGATIVE); KETONES,URINE 1+ (NEGATIVE); LEUKOCYTE ESTERASE ,URINE NEGATIVE (NEGATIVE); NITRITE,URINE NEGATIVE (NEGATIVE); PROTEIN,URINE NEGATIVE (NEGATIVE)
[2020-03-05 15:05] LABS: HEMATOCRIT 48 % (40-54); HEMOGLOBIN 16.6 G/DL (13.3-17.7); MEAN CORPUSCULAR HEMOGLOBIN 32 PG (25-34); MEAN CORPUSCULAR VOLUME 93 FL (80-99); WHITE BLOOD COUNT 9.6 10^3/uL (4.3-11.0)
[2020-03-05 15:06] LABS: BASOPHILS % (AUTO) 0 % (0-10); EOSINOPHILS # (AUTO) 0.1 10^3/uL (0.0-0.3); EOSINOPHILS % (AUTO) 1 % (0-10); LYMPHOCYTES # (AUTO) 2.4 X 10^3 (1.0-4.0); LYMPHOCYTES % (AUTO) 26 % (12-44); MEAN CORPUSCULAR HGB CONC 34 G/DL (32-36); MONOCYTES # (AUTO) 0.6 X 10^3 (0.0-1.0); MONOCYTES % (AUTO) 6 % (0-12); NEUTROPHILS # (AUTO) 6.4 X 10^3 (1.8-7.8); NEUTROPHILS % (AUTO) 67 % (42-75); PLATELET COUNT 256 10^3/uL (130-400)
[2020-03-05 15:08] LABS: ALBUMIN 4.7 GM/DL (3.2-4.5); CHLORIDE 102 MMOL/L (98-107); POTASSIUM 3.6 MMOL/L (3.6-5.0); SODIUM 139 MMOL/L (135-145)
[2020-03-05 15:09] LABS: AMPHETAMINE SCREEN, URINE NEGATIVE (NEGATIVE); BARBITURATE SCREEN URINE NEGATIVE (NEGATIVE); BENZODIAZEPINES SCREEN URINE NEGATIVE (NEGATIVE); CALCIUM 9.1 MG/DL (8.5-10.1); CANNABINOID SCREEN, URINE POSITIVE (NEGATIVE); COCAINE SCREEN URINE NEGATIVE (NEGATIVE); METHADONE STAT NEGATIVE (NEGATIVE); METHAMPHETAMINE SCREEN URINE S NEGATIVE (NEGATIVE); OPIATE SCREEN URINE NEGATIVE (NEGATIVE); OXYCODONE STAT NEGATIVE (NEGATIVE); PROPOXYPHENE STAT NEGATIVE (NEGATIVE); TRICYCLIC ANTIDEPRESSANTS SCRE NEGATIVE (NEGATIVE)
[2020-03-05 15:11] LABS: GLUCOSE 101 MG/DL (70-105); TOTAL PROTEIN 8.1 GM/DL (6.4-8.2)
[2020-03-05 15:12] LABS: BACTERIA,URINE NEGATIVE /HPF; BILIRUBIN,TOTAL 1.1 MG/DL (0.1-1.0); CARBON DIOXIDE 26 MMOL/L (21-32); RBC,URINE RARE /HPF; SQUAMOUS EPITHELIAL CELL,UR RARE /HPF
[2020-03-05 15:14] LABS: ALKALINE PHOSPHATASE 55 U/L (40-136); CREATININE SERUM 0.95 MG/DL (0.60-1.30); GFR ESTIMATED > 60
[2020-03-05 15:15] LABS: BUN/CREATININE RATIO 9
[2020-03-05 15:17] LABS: ALANINE AMINOTRANSFERASE 19 U/L (0-55)
[2020-03-05 16:07] VITALS: BP 108/66
== END 2020-03-05 16:09 | disposition home or self-care (01) ==
LOC: EDUNIT# 13:52 → ER 13:54
DX: R53.81 Other malaise (principal); R53.83 Other fatigue; J45.909 Unspecified asthma, uncomplicated; Z88.5 Allergy status to narcotic agent; Z20.828 Contact with and (suspected) exposure to other viral communicable diseases; Z77.22 Contact with and (suspected) exposure to environmental tobacco smoke (acute) (chronic); Z79.52 Long term (current) use of systemic steroids
CPT/HCPCS: 36415; 80053; 80306; 81000; 84145; 85025; 86141; 86308; 87430; 87491; 87591; 87804

== ENCOUNTER → 2020-08-30 | Outpatient (CLI) | payer OTHER ==
[~2020-08-30] MED LIST changes: +RT-ALBUTEROL SULF 2.5 MG/3 ML PRE-MIX VIAL INH ONE
== END ==
LOC: RT 12:56
PROVIDERS: ATTEND Nurse Practitioner Family
DX: J45.40 Moderate persistent asthma, uncomplicated (principal)
CPT/HCPCS: 94060; 94726; 94729

== ENCOUNTER 2021-04-14 17:59 | Emergency (ER) | payer SELFPAY ==
[~2021-04-14] VITALS: Ht 175.3 cm; Wt 97.5 kg
[~2021-04-14 17:59] MED LIST changes: +CLIN-144 PO; -CLIN300C12 PO; -RT-ALBUTEROL SULF 2.5 MG/3 ML PRE-MIX VIAL INH ONE
[2021-04-14 19:18] VITALS: BP 129/91
--- NOTE | 2021-04-14 20:01 | ED Cough/URI ---
General Chief Complaint: COVID19 Suspect/Confirmed Stated Complaint: COVID +, SOB Nursing Triage Note: Pt ambulatory to ER today with complaints of SOA. Pt reports that he was sabbed/tested positive for covid yesterday at [facility]. Pt also reports that he has a hx of bronchitis and is wondering if he has it again and needs some antibiotics. Pt is A/Ox4 and is 96-97% on room air with no apparent distress noted. Source: patient Exam Limitations: no limitations History of Present Illness Date Seen by Provider: Apr 14, 2021 Time Seen by Provider: 19:40 Initial Comments Patient is a 35-year-old male who presents to the emergency room with a chief complaint of mild sore throat, diarrhea, body aches shortness of breath. He has a history of asthma, uses Advair daily. Started getting COVID symptoms on Wednesday this past weekend. Tested positive yesterday. States all of his family members in the home have COVID currently. He has not been taking any medications for his symptoms. He was concerned that he might have accompanying bronchitis. No problems eating or drinking. No problems with urination. No swelling in his calves or cramping in his legs. No family history of blood clots. Is not lightheaded or dizzy when he stands up. All other review of systems reviewed and negative except as stated Timing/Duration: other (3 days) Severity/Quality: mild Prior Episodes/Possible Cause: illness exposure Associated Symptoms: cough, muscle aches, nasal congestion, shortness of breath Allergies and Home Medications Allergies Coded Allergies: morphine (Unverified Allergy, Mild, swollen arm and lizzette, 10/18/09) Patient Home Medication List Home Medication List Reviewed: Yes Ammonium Lactate (Ammonium Lactate) 226 Gm Lotion, 226 GM TP BID Prescribed by: NATHAN CRAWLEY on 03/02/20 1602 Chlorpheniramine Maleate (Chlorpheniramine Maleate) 4 Mg Tablet, 4 MG PO HS Prescribed by: JULIETTE LEONE on 12/04/19 1256 Clindamycin HCl (Clindamycin HCl) 300 Mg Capsule, 300 MG PO TID Prescribed by: NATHAN CRAWLEY on 11/27/18 1807 Clindamycin HCl (Clindamycin HCl) 300 Mg Capsule, 300 MG PO TID Prescribed by: NATHAN CRAWLEY on 12/03/18 1633 Fluticasone Propionate (Fluticasone Propionate) 15.8 Ml [place].susp, 2 PUFF NS DAILY Prescribed by: JULIETTE LEONE on 12/04/19 1256 Hydrocodone Bit/Acetaminophen (Hydrocodone-Apap 5-325 Tablet) 1 Tab Tablet, 1 TAB PO Q6H PRN for PAIN Prescribed by: NATHAN CRAWLEY on 10/11/13 1840 Ibuprofen (Ibuprofen) 800 Mg Tablet, 800 MG PO Q8H PRN for PAIN Prescribed by: NATHAN CRAWLEY on 09/15/19 1241 Loratadine (Loratadine) 10 Mg Tablet, 10 MG PO DAILY Prescribed by: JULIETTE LEONE on 12/04/19 1256 Naproxen (Naproxen) 250 Mg Tablet, 1 EA PO TID PRN for PAIN Prescribed by: NATHAN CRAWLEY on 10/11/131839 Prednisone (Prednisone) 20 Mg Tab, 40 MG PO DAILY Prescribed by: NATHAN CRAWLEY on 01/01/20 191 Review of Systems Review of Systems Constitutional: see HPI EENTM: throat pain Respiratory: cough Cardiovascular: no symptoms reported Gastrointestinal: diarrhea Genitourinary: no symptoms reported Musculoskeletal: no symptoms reported Skin: no symptoms reported Psychiatric/Neurological: No Symptoms Reported All Other Systems Reviewed Negative Unless Noted: Yes Past Askkflm-Hzsecq-Mriitb Hx Patient Social History Tobacco Use?: No Tobacco type used: Cigarettes Smoking Status: Former Smoker Smokeless Tobacco Frequency: Never a User Use of E-Cig and/or Vaping Cesar: Never a User Substance use?: No Alcohol Use?: No Pt feels they are or have been: No Immunizations Up To Date Tetanus Booster (TDap): Less than 5yrs Influenza Vaccine Up-to-Date: No; Not Current First/Initial COVID19 Vaccinat: 06/26 Second COVID19 Vaccination [place]: 07/09 COVID19 Vaccine Assessment Technician: J&J Seasonal Allergies Seasonal Allergies: No Past Medical History Surgeries: Yes Orthopedic Respiratory: Yes Asthma Cardiac: No Neurological: No Reproductive Disorders: No Sexually Transmitted Disease: No Genitourinary: No Gastrointestinal: No Musculoskeletal: No Endocrine: No HEENT: No Cancer: No Psychosocial: Yes Anxiety, Depression Integumentary: No Blood Disorders: No Family Medical History No Pertinent Family Hx Physical Exam Vital Signs - First Documented 04/14/21 19:18 Temp 36.5 Pulse 98 B/P (MAP) 129/91 (104) Pulse Ox 97 O2 Delivery Room Air Capillary Refill : Less Than 3 Seconds Height: 5'9.00" Weight: 185lbs. oz. 83.513902mb; 31.00 BMI Method:Stated General Appearance: WD/WN, no apparent distress Eyes: Bilateral Eye Normal Inspection, Bilateral Eye PERRL, Bilateral Eye EOMI HEENT: PERRL/EOMI, pharynx normal, other (Appears adequately hydrated) Neck: non-tender, full range of motion, supple, normal inspection Respiratory: lungs clear, normal breath sounds, no respiratory distress, no accessory muscle use Cardiovascular: regular rate, rhythm Gastrointestinal: non tender, soft Extremities: non-tender, normal inspection, no pedal edema, no calf tenderness, normal capillary refill Neurologic/Psychiatric: alert, normal mood/affect, oriented x 3 Skin: normal color, warm/dry Progress/Results/Core Measures Suspected Sepsis SIRS Temperature: Pulse: 98 Respiratory Rate: Blood Pressure 129 /91 Mean: 104 Results/Orders Vital Signs/I&O 04/14/21 19:18 Temp 36.5 Pulse 98 B/P (MAP) 129/91 (104) Pulse Ox 97 O2 Delivery Room Air Capillary Refill : Less Than 3 Seconds Blood Pressure Mean: 104 Departure Impression Primary Impression: COVID-19 Disposition: 01 HOME, SELF-CARE Condition: Stable Departure-Patient Inst. Decision time for Depature: 19:59 Referrals: [facility]/ (PCP) Primary Care Physician KALIE RODNEY (Family) Primary Care Physician Patient Instructions: COVID-19 ED Add. Discharge Instructions: Drink lots of fluids to stay well-hydrated, water, Gatorade etc. Use cykh-lot-nzxjtrf anti-inflammatory such as Advil, aspirin, Excedrin or Tylenol for body aches and fever. Robitussin as needed for cough Check your oxygen level if you become more symptomatic, if the numbers are declining and especially less than 90% please come back to the emergency room for reevaluation. Follow-up with your primary care physician in 2 weeks. Return to the emergency room for all new, concerning or emergent complaints. BILLIE CRUZ MD Apr 14, 2021 20:01
== END 2021-04-14 20:23 | disposition home or self-care (01) ==
LOC: EDUNIT# 17:59 → ER 18:02
DX: U07.1 COVID-19 (principal); J45.909 Unspecified asthma, uncomplicated; Z87.891 Personal history of nicotine dependence
CPT/HCPCS: 99281

== ENCOUNTER 2022-02-12 16:16 | Emergency (ER) | payer SELFPAY ==
[~2022-02-12] VITALS: Ht 172.7 cm; Wt 104.3 kg
[2022-02-12 17:04] LABS: BASOPHILS # (AUTO) 0.1 10^3/uL (0.0-0.1); BASOPHILS % (AUTO) 1 % (0-10); EOSINOPHILS # (AUTO) 0.2 10^3/uL (0.0-0.3); EOSINOPHILS % (AUTO) 2 % (0-10); HEMATOCRIT 42 % (40-54); LYMPHOCYTES % (AUTO) 34 % (12-44); MEAN CORPUSCULAR HEMOGLOBIN 31 pg (25-34); MEAN CORPUSCULAR HGB CONC 36 g/dL (32-36); MEAN CORPUSCULAR VOLUME 87 fL (80-99); MEAN PLATELET VOLUME 10.3 fL (9.0-12.2); MONOCYTES # (AUTO) 0.7 10^3/uL (0.0-1.0); MONOCYTES % (AUTO) 8 % (0-12); NEUTROPHILS # (AUTO) 4.9 10^3/uL (1.8-7.8); NEUTROPHILS % (AUTO) 56 % (42-75); PLATELET COUNT 276 10^3/uL (130-400); WHITE BLOOD COUNT 8.7 10^3/uL (4.3-11.0)
[2022-02-12 17:11] LABS: ALBUMIN 4.4 GM/DL (3.2-4.5); POTASSIUM 3.9 MMOL/L (3.6-5.0)
[2022-02-12 17:12] LABS: CALCIUM 9.3 MG/DL (8.5-10.1)
--- NOTE | 2022-02-12 17:12 | Diagnostic Imaging Report ---
PROCEDURE: CT abdomen and pelvis without contrast. TECHNIQUE: Multiple contiguous axial images were obtained through the abdomen and pelvis without the use of intravenous contrast. Auto Exposure Controls were utilized during the CT exam to meet ALARA standards for radiation dose reduction. INDICATION: Left lower quadrant and left flank pain. COMPARISON: Exam is compared with studies 06/24/2018. FINDINGS: There are no radiopaque urinary tract calculi. No hydroureteronephrosis. Liver, gallbladder, bile ducts, spleen, adrenals, and pancreas are unremarkable. The aorta is nonaneurysmal. There is an air-containing normal appendix. There is no evidence for acute diverticulitis. There are a few sigmoidal diverticula, chronic. There is no ascites, abscess, hematoma, or acute fluid collection. There are pelvic phleboliths present. The unopacified urinary bladder is unremarkable. IMPRESSION: Mild noninflamed sigmoid diverticulosis. Normal appendix. No urinary tract calculus, obstruction, or focal inflammatory changes identified. Dictated by: Dictated on workstation # [id number]
[2022-02-12 17:14] LABS: TOTAL PROTEIN 7.9 GM/DL (6.4-8.2)
[2022-02-12 17:15] LABS: BILIRUBIN,TOTAL 0.6 MG/DL (0.1-1.0)
[2022-02-12 17:17] LABS: CREATININE SERUM 0.84 MG/DL (0.60-1.30)
--- NOTE | 2022-02-12 18:00 | ED Abdominal Pain ---
General Chief Complaint: Back Problems Stated Complaint: BACK PAIN Nursing Triage Note: PT STATES HE WENT TO [facility] AND WAS CHECKED OUT FOR LT KIDNEY PAIN, PAIN IN LT ABD ALSO, PAIN STARTS IN THE BACK AFTER WAKING UP THEN MOVES TO THE FRONT, DENIES PAIN WHEN URINATING, RX FOR PAIN Source of Information: Patient Exam Limitations: No Limitations History of Present Illness Date Seen by Provider: Feb 12, 2022 Time Seen by Provider: 16:35 Initial Comments Patient is a 36-year-old male who presents to the emergency department with approximately 5 days of left flank pain that radiates into his left lower quadrant. He was seen at the [facility] 2 days ago where an x-ray was obtained that he states did not show anything abnormal. He was given meloxicam for pain and discharged home. He states the pain has not improved since that time. He states the pain is typically worse in the morning. He states it typically starts in his left flank and then throughout the day radiates into his left lower quadrant of his abdomen. States the pain does tend to subside throughout the day but worsens again each morning. Denies any nausea/vomiting/diarrhea, fever, urinary symptoms. No history of similar symptoms. Is having normal bowel movements and has been eating and drinking without issue. Allergies and Home Medications Allergies Coded Allergies: morphine (Unverified Allergy, Mild, swollen arm and lizzette, 10/18/09) Patient Home Medication List Home Medication List Reviewed: Yes Ammonium Lactate (Ammonium Lactate) 226 Gm Lotion, 226 GM TP BID Prescribed by: NATHAN CRAWLEY on 03/02/20 1602 Chlorpheniramine Maleate (Chlorpheniramine Maleate) 4 Mg Tablet, 4 MG PO HS Prescribed by: JULIETTE LEONE on 12/04/19 1256 Clindamycin HCl (Clindamycin HCl) 300 Mg Capsule, 300 MG PO TID Prescribed by: NATHAN CRAWLEY on 11/27/18 1807 Clindamycin HCl (Clindamycin HCl) 300 Mg Capsule, 300 MG PO TID Prescribed by: NATHAN CRAWLEY on 12/03/18 1633 Fluticasone Propionate (Fluticasone Propionate) 15.8 Ml [place].susp, 2 PUFF NS DAILY Prescribed by: JULIETTE LEONE on 12/04/19 1256 Hydrocodone Bit/Acetaminophen (Hydrocodone-Apap 5-325 Tablet) 1 Tab Tablet, 1 TAB PO Q6H PRN for PAIN Prescribed by: NATHAN CRAWLEY on 10/11/13 184 Ibuprofen (Ibuprofen) 800 Mg Tablet, 800 MG PO Q8H PRN for PAIN Prescribed by: NATHAN CRAWLEY on 09/15/19 1241 Loratadine (Loratadine) 10 Mg Tablet, 10 MG PO DAILY Prescribed by: JULIETTE LEONE on 12/04/19 1256 Naproxen (Naproxen) 250 Mg Tablet, 1 EA PO TID PRN for PAIN Prescribed by: NATHAN CRAWLEY on 10/11/131839 Prednisone (Prednisone) 20 Mg Tab, 40 MG PO DAILY Prescribed by: NATHAN CRAWLEY on 01/01/20 191 Review of Systems Review of Systems Constitutional: no symptoms reported EENTM: No Symptoms Reported Respiratory: No Symptoms Reported Cardiovascular: No Symptoms Reported Gastrointestinal: See HPI, Abdominal Pain Genitourinary: See HPI, Flank Pain Musculoskeletal: no symptoms reported Skin: no symptoms reported Psychiatric/Neurological: No Symptoms Reported Endocrine: No Symptoms Reported Hematologic/Lymphatic: No Symptoms Reported Past Wfnmqkh-Qbbkzb-Etzhij Hx Patient Social History Tobacco Use?: Yes Smoking Status: Former Smoker Substance use?: No Alcohol Use?: No Immunizations Up To Date Tetanus Booster (TDap): Less than 5yrs First/Initial COVID19 Vaccinat: 06/26 Second COVID19 Vaccination [place]: 07/09 Third COVID19 Vaccination Date: 06/26 Seasonal Allergies Seasonal Allergies: No Past Medical History Surgery/Hospitalization HX: ASTHMA, RT ANKLE SURGERY Surgeries: Yes Orthopedic Respiratory: Yes Asthma Cardiac: No Neurological: No Reproductive Disorders: No Sexually Transmitted Disease: No Genitourinary: No Gastrointestinal: No Musculoskeletal: No Endocrine: No HEENT: No Cancer: No Psychosocial: Yes Anxiety, Depression Integumentary: No Blood Disorders: No Family Medical History No Pertinent Family Hx Physical Exam Vital Signs Vital Signs - First Documented 02/12/22 16:34 Temp 36.6 Pulse 69 Resp 18 B/P (MAP) 129/83 (98) Pulse Ox 98 O2 Delivery Room Air Capillary Refill : Less Than 3 Seconds Height/Weight/BMI Height: 5'9.00" Weight: 185lbs. oz. 83.749300mo; 34.00 BMI Method:Stated General Appearance: WD/WN, no apparent distress HEENT: PERRL/EOMI, normal ENT inspection, TMs normal, pharynx normal Neck: non-tender, full range of motion Respiratory: chest non-tender, lungs clear, normal breath sounds, no respiratory distress, no accessory muscle use Cardiovascular: regular rate, rhythm Gastrointestinal: non tender, soft, no organomegaly Extremities: normal range of motion, non-tender, normal inspection, no calf tenderness Neurologic/Psychiatric: no motor/sensory deficits, alert, normal mood/affect, oriented x 3 Skin: normal color, warm/dry Progress/Results/Core Measures Results/Orders Lab Results Laboratory Tests Test 02/12/22 16:52 Range/Units White Blood Count 8.7 4.3-11.0 10^3/uL Red Blood Count 4.77 4.30-5.52 10^6/uL Hemoglobin 15.0 13.3-17.7 g/dL Hematocrit 42 40-54 % Mean Corpuscular Volume 87 80-99 fL Mean Corpuscular Hemoglobin 31 25-34 pg Mean Corpuscular Hemoglobin Concent 36 32-36 g/dL Red Cell Distribution Width 11.7 10.0-14.5 % Platelet Count 276 130-400 10^3/uL Mean Platelet Volume 10.3 9.0-12.2 fL Immature Granulocyte % (Auto) 0 % Neutrophils (%) (Auto) 56 42-75 % Lymphocytes (%) (Auto) 34 12-44 % Monocytes (%) (Auto) 8 0-12 % Eosinophils (%) (Auto) 2 0-10 % Basophils (%) (Auto) 1 0-10 % Neutrophils # (Auto) 4.9 1.8-7.8 10^3/uL Lymphocytes # (Auto) 3.0 1.0-4.0 10^3/uL Monocytes # (Auto) 0.7 0.0-1.0 10^3/uL Eosinophils # (Auto) 0.2 0.0-0.3 10^3/uL Basophils # (Auto) 0.1 0.0-0.1 10^3/uL Immature Granulocyte # (Auto) 0.0 0.0-0.1 10^3/uL Sodium Level 138 135-145 MMOL/L Potassium Level 3.9 3.6-5.0 MMOL/L Chloride Level 103 98-107 MMOL/L Carbon Dioxide Level 25 21-32 MMOL/L Anion Gap 10 5-14 MMOL/L Blood Urea Nitrogen 11 7-18 MG/DL Creatinine 0.84 0.60-1.30 MG/DL Estimat Glomerular Filtration Rate 117 BUN/Creatinine Ratio 13 Glucose Level 89 70-105 MG/DL Calcium Level 9.3 8.5-10.1 MG/DL Corrected Calcium 9.0 8.5-10.1 MG/DL Total Bilirubin 0.6 0.1-1.0 MG/DL Aspartate Amino Transf (AST/SGOT) 29 5-34 U/L Alanine Aminotransferase (ALT/SGPT) 38 0-55 U/L Alkaline Phosphatase 83 40-136 U/L Total Protein 7.9 6.4-8.2 GM/DL Albumin 4.4 3.2-4.5 GM/DL My Orders Orders - ROSA JUAN SEC [employer] Ct Abdomen/Pelvis Wo (02/12/22 16:52) Ua Culture If Indicated (02/12/22 16:52) Cbc With Automated Diff (02/12/22 16:52) Comprehensive Metabolic Panel (02/12/22 16:52) Vital Signs/I&O 02/12/22 16:34 Temp 36.6 Pulse 69 Resp 18 B/P (MAP) 129/83 (98) Pulse Ox 98 O2 Delivery Room Air Blood Pressure Mean: 98 Progress Progress Note : Progress Note Patient is nontoxic and well-hydrated on exam. Abdominal exam is benign with no focal tenderness to palpation, distention, rigidity, or guarding. No tenderness to palpation in the left flank. Vital signs are reassuring. Patient was ambulatory to the room without issue. Laboratory evaluation is very reassuring with no abnormalities. CT of the abdomen pelvis reveals no acute abnormality that would explain the patient's symptoms. At this time there appears to be no indication for further diagnostic testing or admission to the hospital. No indications for acute surgical consult. Will discharge home with recommendations for supportive care and close follow-up with PCP. Return precautions for urgent symptomology discussed. Patient verbalized understanding. Departure Impression Primary Impression: Left flank pain Disposition: 01 HOME, SELF-CARE Condition: Stable Departure-Patient Inst. Decision time for Depature: 17:55 Referrals: [facility] (PCP) Primary Care Physician KALIE RODNEY (Family) Primary Care Physician Patient Instructions: Flank Pain ROSA JUAN SEC ACCOUNTANT Feb 12, 2022 18:00
[2022-02-12 18:18] VITALS: BP 124/81
== END 2022-02-12 18:19 | disposition home or self-care (01) ==
LOC: EDUNIT# 16:16 → ER 16:18
DX: R10.9 Unspecified abdominal pain (principal); Z87.891 Personal history of nicotine dependence
CPT/HCPCS: 36415; 74176; 80053; 85025